=== PATIENT | male | born 1995 | race African-American/Black ===

== ENCOUNTER 2025-10-11 03:35 | Emergency (ER) | payer OTHER, SELFPAY ==
--- OUTSIDE RECORDS SUMMARY | 2025-10-11 03:48 | XMS_ITS | Continuity of Care Document ---
Author Name [facility] Organization [facility] Care Team Providers Care Employee Wellness/Fitness Coordinator Name Role Phone [facility] Unavailable Unavailable Problems Combined list of problems from Department of Defense and Veterans Affairs facilities. It does not include entries that were removed or entered in error. Problem Status Onset Date Problem Type Date of Resolution Comments Source Alpha thalassemia trait Active [address] [place] [address] Elevated blood pressure reading without diagnosis of hypertension Active [address] [place] [address] Pain of left shoulder joint Active [address] [place] [address] Lipomatosis, not elsewhere classified Inactive [address] [facility] contact dermatitis due to detergents Inactive [address] [facility] Preventive Medicine Established Patient Checkup Adult 18-39 Years Inactive [address] [facility] pain during urination (dysuria) Inactive [address] [facility] Encounter for administrative examinations, unspecified Active [address] [facility] Abnormal blood test Active Condition [address] [place] [address] Administrative statuses Active Condition [address] [place] [address] Alpha thalassemia trait Active Condition [address] [place] [address] Caregiver health check completed Active Condition [address] [place] [address] Elevated blood pressure reading without diagnosis of hypertension Active Condition [address] [place] [address] Morbid obesity Active Condition Unknown Organization Sleep problem Active Condition [address] [place] [address] Encounter for hearing conservation and treatment Active Condition [address] [place] [address] Vitamin D deficiency Active Condition [address] [place] [address] Medications Combined list of outpatient medications from Department of Defense and Veterans Affairs facilities.Medications provided include 1) outpatient medications from the last 15 months, and 2) patient-reported medications. Medication Details Route Status Indication(s) Patie nt Instructions Prescription Expires Prescription Number Last Dispense Date Ordering Provider Order Date Order Qty Source diphenhydrA MINE 0 total refill(s ), Maintena nce Ordered 2024 [facility] ibuprofen 600 mg oral tablet 1 tab(s), Oral, every 6 hr, # 40 tab(s), 0 total refill(s ), Acute, 01/24/23 12:00:00 AM CDT, Pharmacy : [facility] Oral (given by mouth) [facility] ed Abnormal findings in other body fluids and substances; Body mass index (BMI) 40.0-44.9, adult 01/24/20232022 40.0 0364C-A [facility] Sudafed 30 mg oral tablet 2 tab(s), Oral, every 6 hr, # 30 tab(s), 0 total refill(s ), Acute, 01/24/23 12:00:00 AM CDT, Pharmacy : [facility] Oral (given by mouth) [facility] ed Abnormal findings in other body fluids and substances; Body mass index (BMI) 40.0-44.9, adult 01/24/20232022 30.0 0364C-A [facility] [place] [facility] Tessalon Perles 100 mg oral capsule 1 cap(s), Oral, TID, PRN cough, X 10 days, # 30 cap(s), 0 total refill(s ), Acute, 01/03/23 8:56:00 AM CDT, Pharmacy : [facility] Oral (given by mouth) [facility] ed Abnormal findings in other body fluids and substances; Body mass index (BMI) 40.0-44.9, adult 01/03/20232022 30.0 0364C-A [facility] [place] [facility] Vitamin D3 25 mcg (1000 intl units) oral tablet 2 tab(s), Oral, Daily, # 180 tab(s), 3 total refill(s ), Harsha brewer, Pharmacy : [facility] Oral (given by mouth) Ordered 2024 180.0 0127C[facility]N [facility] Voltaren 1% topical gel See instruct ions, Apply 2 grams (upper extremit ies) or 4 grams (lower extremit ies) to affected area topicall y four times daily as needed for pain. Max total body dose of 32 grams per day, # 100 g, 0 total refill(s ), Harsha daniella, Pharmacy : [facility] Ordered 3 2022 100.0 0127C[facility]N [facility] Allergies, Adverse Reactions, Alerts Combined list of allergies from Department of Defense and Veterans Affairs facilities. It does not include entries that were removed or entered in error. Substance Category Reaction Severity Reaction type Status Date Reported Comments Source No Known Allergies Drug allergy (disorder) active 01/25/2023 [facility] Immunizations Combined list of available immunizations from the Department of Defense and Veterans Affairs facilities. Immunization Series Date Given Administered By Site Reaction Lot Number CVX Code Drug Paper Testing Supervisor Status Comments Source influenza, seasonal, injectable-pf 2023 LeeannSharee 140 complet ed Result Comment: Route: Unknown Manufactu rer: OTH (SKB) 0127C-N [facility] tuberculin purified protein derivative 2021 zzLef t Arm [id number] sanofi pasteur complet ed tuberculi n purified protein derivativ e 05/15/22 Given Ambulat ory Pharmac y tuberculin skin test; purified protein derivative solution, intradermal 1 2021 GURJIT MARROQUIN E [id number] 96 Sanofi Pasteur (PMC) complet ed tuberculi n skin test; purified protein derivativ e solution, intraderm al DoD typhoid Vi capsular polysaccharid e vac 2021 UNK 101 sanofi pasteur complet ed typhoid Vi capsular polysacch aride vac 05/07/22 Given Ambulat ory Pharmac y typhoid Vi capsular polysaccharid e vac 2021 UNK 101 sanofi pasteur complet ed typhoid Vi capsular polysacch aride vac 05/07/22 Given Ambulat ory Pharmac y typhoid Vi capsular polysaccharid e vaccine 2 2021 UNK 101 Sanofi Pasteur (PMC) complet ed typhoid Vi capsular polysacch aride vaccine DoD influenza, injectable, quadrivalent 2020 [id number] Seqirus complet ed influenza , injectabl e, quadrival ent 08/21/21 Given Ambulat ory Pharmac y influenza, injectable, quadrivalent 2020 [id number] 158 Seqirus complet ed influenza , injectabl e, quadrival ent 08/21/21 Given Ambulat ory Pharmac y influenza, injectable, quadrivalent, contains preservative 0 2020 [id number] 158 Seqirus (SEQ) comple t ed influenza , injectabl e, quadrival ent, contains preservat xenia DoD COVID Vaccine [facility] 2020 TRS 208 PFIZER complet ed COVID Vaccine Pfizer 06/21/21 Given Ambulat ory Pharmac y COVID Vaccine [facility] 2020 TRS 208 PFIZER complet ed COVID Vaccine Pfizer 06/21/21 Given Ambulat ory Pharmac y COVID-19, mRNA, LNP-S, PF, 30 mcg/0.3 mL dose 2020 GUMARO [employer] [facility] (PFR) Not Given COVID-19, mRNA, LNP-S, PF, 30 mcg/0.3 mL dose DoD SARS-COV-2 (COVID-19) vaccine, mRNA, spike protein, LNP, preservative free, 30 mcg/0.3mL dose 0 2020 Unknown, Provider TRS 208 [employer] (PFR) complet ed SARS-COV- 2 (COVID-19 ) vaccine, mRNA, spike protein, LNP, preservat xenia free, 30 mcg/0.3mL dose DoD COVID Vaccine [facility] 2020 [id number] PFIZER complet ed COVID Vaccine [facility] 03/15/21 Given Ambulat ory Pharmac y COVID Vaccine [facility] 2020 [id number] PFIZER complet ed COVID Vaccine [facility] 03/15/21 Given Ambulat ory Pharmac y SARS-COV-2 (COVID-19) vaccine, mRNA, spike protein, LNP, preservative free, 30 mcg/0.3mL dose 1 2020 [id number] [employer] (PFR) complet ed SARS-COV- 2 (COVID-19 ) vaccine, mRNA, spike protein, LNP, preservat xenia free, 30 mcg/0.3mL dose DoD influenza, injectable, quadrivalent- pf 2019 [id number] 699 150 Seqirus complet ed influenza , injectabl e, quadrival ent-pf 08/12/20 Given Ambulat ory Pharmac y influenza, injectable, quadrivalent- pf 2019 [id number] 699 150 Seqirus complet ed influenza , injectabl e, quadrival ent-pf 08/12/20 Given Ambulat ory Pharmac y Influenza, injectable, quadrivalent, preservative free 0 2019 [id number] 699 150 Seqirus (SEQ) complet ed Influenza , injectabl e, quadrival ent, preservat xenia free DoD [place] Encephalitis IM 2019 [id number] 0E 134 Valneva complet ed [place] Encephali tis IM 12/07/19 Given Ambulat ory Pharmac y [place] Encephalitis IM 2019 [id number] 0E 134 Valneva complet ed [place] Encephali tis IM 12/07/19 Given Ambulat ory Pharmac y [place] Encephalitis vaccine for intramuscular administratio n 3 2019 [id number] 0E 134 Valneva (STEVE) complet ed [place] Encephali tis vaccine for intramusc ular administr ation DoD influenza, seasonal, injectable 2018 [id number] 988 141 Seqirus complet ed influenza , seasonal, injectabl e 08/03/19 Given Ambulat ory Pharmac y influenza, seasonal, injectable 2018 [id number] 988 141 Seqirus complet ed influenza , seasonal, injectabl e 08/03/19 Given Ambulat ory Pharmac y Influenza, seasonal, injectable 0 2018 [id number] 988 141 Seqirus (SEQ) complet ed Influenza , seasonal, injectabl e DoD influenza, seasonal, injectable 2017 [id number] 1A 141 Seqirus complet ed influenza , seasonal, injectabl e 07/24/18 Given Ambulat ory Pharmac y influenza, seasonal, injectable 2017 [id number] 1A 141 Seqirus complet ed influenza , seasonal, injectabl e 07/24/18 Given Ambulat ory Pharmac y Influenza, seasonal, injectable 0 2017 [id number] 1A 141 Seqirus (SEQ) complet ed Influenza , seasonal, injectabl e DoD [place] Encephalitis IM 2017 UNK 134 Unknown complet ed [place] Encephali tis IM 02/26/18 Given Ambulat ory Pharmac y [place] Encephalitis vaccine for intramuscular administratio n 2 2017 UNK 134 Unknown (UNK) comple t ed [place] Encephali tis vaccine for intramusc ular administr ation DoD typhoid Vi capsular polysaccharid e vac 2017 UNK 101 Unknown complet ed typhoid Vi capsular polysacch aride vac 02/11/18 Given Ambulat ory Pharmac y typhoid Vi capsular polysaccharid e vaccine 1 2017 UNK 101 Unknown (UNK) comple t ed typhoid Vi capsular polysacch aride vaccine DoD Human Papillomaviru s 9-valent vaccine [facility] [id number] 165 Merck & Company Inc complet ed Human Papilloma virus 9-valent vaccine 06/24/17 Given Ambulat ory Pharmac y influenza, injectable, quadrivalent [facility] [id number] 158 Seqirus complet ed influenza , injectabl e, quadrival ent 06/24/17 Given Ambulat ory Pharmac y influenza, injectable, quadrivalent 2016 [id number] 158 Seqirus complet ed influenza , injectabl e, quadrival ent 06/24/17 Given Ambulat ory Pharmac y Human Papillomaviru s 9-valent vaccine 2016 [id number] 165 Merck & Company Inc complet ed Human Papilloma virus 9-valent vaccine 06/24/17 Given Ambulat ory Pharmac y influenza, injectable, quadrivalent, contains preservative 1 2016 Unknown, Provider [id number] 158 Seqirus (SEQ) complet ed influenza , injectabl e, quadrival ent, contains preservat xenia DoD Human Papillomaviru s 9-valent vaccine 2 2016 Unknown, Provider [id number] 165 Merck (MSD) complet ed Human Papilloma virus 9-valent vaccine DoD influenza, injectable, quadrivalent [facility] [id number] 158 Seqirus complet ed influenza , injectabl e, quadrival ent 09/18/16 Given Ambulat ory Pharmac y influenza, injectable, quadrivalent 2015 [id number] 158 Seqirus complet ed influenza , injectabl e, quadrival ent 09/18/16 Given Ambulat ory Pharmac y influenza, injectable, quadrivalent, contains preservative 1 2015 BALDOMERO ARVIZU Y [id number] 158 Seqirus (SEQ) complet ed influenza , injectabl e, quadrival ent, contains preservat xenia DoD [place] Encephalitis IM 2015 UNK 134 Unknown complet ed [place] Encephali tis IM 06/16/16 Given Ambulat ory Pharmac y [place] Encephalitis IM 2015 UNK 134 Unknown complet ed [place] Encephali tis IM 06/16/16 Given Ambulat ory Pharmac y [place] Encephalitis vaccine for intramuscular administratio n 1 2015 UNK 134 Unknown (UNK) comple t ed [place] Encephali tis vaccine for intramusc ular administr ation DoD [place] Encephalitis IM 2015 zzRig ht Arm [id number] 4E 134 Valneva complet ed [place] Encephali tis IM 02/15/16 Given Ambulat ory Pharmac y hepatitis B adult vaccine 2015 zzRig ht Arm [id number] 43 GlaxoSmithKli ne complet ed hepatitis B adult vaccine 02/15/16 Given Ambulat ory Pharmac y Human Papillomaviru s 9-valent vaccine 2015 zzL t Arm [id number] 165 [employer] complet ed Human Papilloma virus 9-valent vaccine 02/15/16 Given Ambulat ory Pharmac y hepatitis B adult vaccine 2015 [id number] 43 GlaxoSmithKli ne complet ed hepatitis B adult vaccine 02/15/16 Given Ambulat ory Pharmac y [place] Encephalitis IM 2015 [id number] 4E 134 Valneva complet ed [place] Encephali tis IM 02/15/16 Given Ambulat ory Pharmac y hepatitis B vaccine, adult dosage 3 2015 KIRA PALUMBO [id number] 43 Groupspeak (B) complet ed hepatitis B vaccine, adult dosage DoD [place] Encephalitis vaccine for intramuscular administratio n 1 2015 KIRA PALUMBO [id number] 4E 134 [facility] [employer] (INT) complet ed [place] Encephali tis vaccine for intramusc ular administr ation DoD Human Papillomaviru s 9-valent vaccine 1 2015 KIRA PALUMBO [id number] 165 Merck (MSD) complet ed Human Papilloma virus 9-valent vaccine DoD influenza, live, intranasal,qu adrivalent 2014 [id number] 149 Medimmune Inc comple t ed influenza , live, intranasa l,quadriv alent 09/21/15 Given Ambulat ory Pharmac y influenza, live, intranasal,qu adrivalent 2014 [id number] 149 Medimmune Inc comple t ed influenza , live, intranasa l,quadriv alent 09/21/15 Given Ambulat ory Pharmac y influenza, live, intranasal, quadrivalent 1 2014 LINWOODKIRA Matthew [id number] 149 [employer]. (MED) complet ed influenza , live, intranasa l, quadrival ent DoD measles and rubella virus vaccine 0 2014 04 () Not Given measles and rubella virus vaccine DoD hepatitis A vaccine, adult dosage 0 2014 52 () Not Given hepatitis A vaccine, adult dosage DoD poliovirus vaccine, inactivated 2014 zzRig ht Arm N6814-1 10 sanofi pasteur complet ed polioviru s vaccine, inactivat ed 06/29/15 Given Ambulat ory Pharmac y hepatitis B adult vaccine 2014 zzLef t Arm [id number] 43 GlaxoSmithKli ne complet ed hepatitis B adult vaccine 06/29/15 Given Ambulat ory Pharmac y poliovirus vaccine, inactivated 2014 [id number] 10 sanofi pasteur complet ed polioviru s vaccine, inactivat ed 06/29/15 Given Ambulat ory Pharmac y poliovirus vaccine, inactivated 1 2014 CAROLYN MARTINEZ [id number] 10 Sanofi Pasteur (PMC) complet ed polioviru s vaccine, inactivat ed DoD hepatitis B vaccine, adult dosage 2 2014 CAROLYN MARTINEZ [id number] 43 SmithKline (SKB) complet ed hepatitis B vaccine, adult dosage DoD tetanus, diphtheria, acellular pertu is 2014 zzRig ht Arm [id number] 115 GlaxoSmithKli ne complet ed tetanus, diphtheri a, acellular pertussis 05/26/15 Given Ambulat ory Pharmac y meningococcal oligosacchari de (MCV4O) 2014 zzLef t Arm [id number] 136 sanofi pasteur complet ed meningoco ccal oligosacc haride (MCV4O) 05/26/15 Given Ambulat ory Pharmac y hepatitis B adult vaccine 2014 zzLef t Arm [id number] 43 GlaxoSmithKli ne complet ed hepatitis B adult vaccine 05/26/15 Given Ambulat ory Pharmac y adenovirus vaccine, live 2014 [id number] 4 143 Unknown complet ed adenoviru s vaccine, live 05/26/15 Given Ambulat ory Pharmac y adenovirus vaccine, live 2014 [id number] 4 143 Unknown complet ed adenoviru s vaccine, live 05/26/15 Given Ambulat ory Pharmac y hepatitis B adult vaccine 2014 [id number] 43 GlaxoSmithKli ne complet ed hepatitis B adult vaccine 05/26/15 Given Ambulat ory Pharmac y meningococcal oligosacchari de (MCV4O) 2014 [id number] 136 sanofi pasteur complet ed meningoco ccal oligosacc haride (MCV4O) 05/26/15 Given Ambulat ory Pharmac y tetanus, diphtheria, acellular pertu is 2014 [id number] 115 GlaxoSmithKli ne complet ed tetanus, diphtheri a, acellular pertussis 05/26/15 Given Ambulat ory Pharmac y hepatitis B vaccine, adult dosage 1 2014 Unknown, Provider [id number] 43 SmithKline (YAHAIRA) complet ed hepatitis B vaccine, adult dosage DoD tetanus toxoid, reduced diphtheria toxoid, and acellular pertu is vaccine, adsorbed 1 2014 Unknown, Provider [id number] 115 SmithKline (SKJayden) complet ed tetanus toxoid, reduced diphtheri a toxoid, and acellular pertussis vaccine, adsorbed DoD meningococcal oligosacchari de (groups A, C, Y and W-135) diphtheria toxoid conjugate vaccine (MCV4O) 1 2014 Unknown, Provider [id number] 136 Sanofi Pasteur (PMC) complet ed meningoco ccal oligosacc haride (groups A, C, Y and W-135) diphtheri a toxoid conjugate vaccine (MCV4O) DoD Adenovirus, type 4 and type 7, live, oral 1 2014 Unknown, Provider [id number] 4 143 Other (OTH) complet ed Adenoviru s, type 4 and type 7, live, oral DoD Results Combined list of recent chemistry, hematology and other laboratory results from Department of Defense and Veterans Affairs, ranging from 15 months to all on record, depending upon the facility. Order Name Results Value Reference Range Date Interpretation Specimen Comments Source Genetics Alpha-Thal Genes Analyzed LC COMMENT 07/06 Result Comment: HBA1/HBA2 0127A-NH [facility] Alpha-Thal Clinical Info LC COMMENT 07/06 Result Comment: Alpha-thala ssemia, a disorder with variable severity, is usually inherited in an autosomal recessive manner. Individuals with alpha-thala ssemia have a deficiency in the production of hemoglobin, a protein that carries oxygen in the blood. Silent carriers of alpha-thala ssemia are not expected to have related health problems. Individuals with alpha-thala ssemia trait may have symptoms of mild anemia. The two clinically significant forms of alpha thalassemia are HbH disease and Hb Bin hydrops fetalis syndrome. Signs and symptoms of the less severe HbH disease usually appear in grain inspector and may include mild to moderate hemolytic anemia, hepatosplen omegaly, mild jaundice, and bone changes. Signs and symptoms of the more severe Hb Bin hydrops fetalis syndrome appear before and may include generalized edema, severe hypochromic anemia, hepatosplen omegaly, heart problems, and genitourina ry abnormaliti es. Mothers of babies affected with Hb Bin hydrops fetalis syndrome may experience serious complicatio ns, including preeclampsi a, premature delivery, or abnormal bleeding during . Co-inherita nce of alpha-thala ssemia and other hemoglobino pathies, such as beta-thalas semia or sickle cell disease, may modify symptoms. In utero stem cell transplanta tion or blood transfusion s may be available for affected fetuses. Without treatment, most babies with Hb Bin hydrops fetalis syndrome are stillborn or soon after . Individuals with HbH disease may survive to adulthood. Treatment is otherwise supportive and may include red blood cell transfusion s. (PMID:[id number]). 0127A-NH [facility] Alpha-Thal Comments LC COMMENT 07/06 Result Comment: This interpretat ion is based on the clinical information provided and the current understandi ng of the molecular genetics of the disorder(s) tested. 0127A-NH [facility] Alpha-Thal Methods/Li mits LC COMMENT 07/06 Result Comment: Alpha thalassemia : Analysis of the alpha-globi n (HBA) gene cluster is performed by multiplex ligation-de pendent probe amplificati on (MLPA). Agarose gel electrophor esis and [place] sequencing are used to distinguish or confirm variants that cannot be resolved by MLPA. There are two alpha-globi n genes in the HBA gene cluster, HBA1 and HBA2. Typically, an individual with a normal genotype has these two genes on each chromosome (alpha alpha/alpha alpha). A deletion that removes two of the genes on one of the chromosomes is described as - -/alpha alpha. Alpha-globi n variants included in the analysis are the [facility] non-deletio n variant and the following deletions: -alpha3.7, -alpha4.2, --alpha20.5 , --SEA, --CLAUDETTE, --QUENTIN, --MED, and the HS-40 regulatory region. This analysis does not detect other variants in the alpha-globi n genes or variants in the beta-globin gene and may not detect the co-occurren ce of a deletion and a duplication . Analytical sensitivity is estimated to be >98% for the targeted variants. Limitations : Technologie s used do not detect germline mosaicism and do not rule out the presence of large chromosomal aberrations including rearrangeme nts and gene fusions, or variants in regions or genes not included in this test, or possible inter/intra genic interaction s between variants, or repeat expansions. Variant classificat ion and/or interpretat ion may change management lead time if more information becomes available. False positive or false negative results may occur for reasons that include: rare genetic variants, sex chromosome abnormaliti es, pseudogene interferenc e, blood transfusion s, bone marrow transplanta tion, somatic or tissue-spec ific mosaicism, mislabeled samples, or erroneous representat ion of family relationshi ps. This test was developed and its performance characteris tics determined by [facility]. It has not been cleared or approved by the Food and Drug Administrat ion. This test was developed and its performance characteris tics determined by [facility]. It has not been cleared or approved by the Food and Drug Administrat ion. 0127A-[facility] Alpha-Thal References LC COMMENT 07/06 Result Comment: Misael Juarez. Alpha-Thala ssemia. 2004Aug 20 [Updated 2019Jul 20]. In: Samson MP, Franky J, Ronen SUH, et al., editors. Silvestre (R) [Internet]. 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 this result have (-alpha/-al pha) alpha-+-heidy lassemia trait. May have symptoms of mild anemia. Genetic counseling is recommended . [facility] Alpha-Thal Recommenda tions LC COMMENT 07/06 Result Comment: If the above result is positive, genetic counseling is recommended to discuss the potential clinical and/or reproductiv e implication s, as well as recommendat ions for testing family members and, when applicable, this individual' s partner. Genetic counseling services are available. To access [facility] please visit [email or web address] nseling or call [phone] [email or web address] ). [facility] Alpha-Thal Specimen Type LC COMMENT 07/06 Result Comment: Whole Blood [facility] Alpha-Thal Indication LC COMMENT 07/06 Result Comment: Not Provided [facility] Alpha-Thal Result LC COMMENT 07/06 A Result Comment: POSITIVE [address] [place] [address] [facility] Alpha-Thal Director Rev/Releas e LC COMMENT 07/06 Result Comment: Component Type Performed At [facility] Leonarda Tomlinson, component, [facility] of , PhD processing [facility] [place], [address] Technical Laboratory Leonarda Tomlinson, component, [facility] , PhD analysis [facility] [facility] [place], [address] [id number], Leonarda Tomlinson, component Laboratory , PhD [facility], [address] [place], [address] Electronica lly released by Fela Richard, PhD, [address] [facility] Alpha-Thal IMAGE LC . 07/06 Result Comment: Performed At: 01 [facility] [address] [place], [place] [id number] [facility], located [facility] Ph:[phone] [address] [place] [address] [facility] TIBC 300 ug/dL 261 - 462 07/06 N 0127A-[facility] Chemistry Iron 88 ug/dL 49 - 181 07/06 N 0127A-[facility] Chemistry Ferritin Lvl 271 ng/mL 30 - 464 07/06 N 0127A-[facility] Chemistry Iron % Sat 29 g/dL 15 - 50 07/06 N 0127A-[facility] Hematolog y CBC w/ Diff Ordered? Yes (07/06/25 2:27 PM) 07/06 N 0125A-[facility] H[facility]olog [facility] Hematocrit 41 % 42 - 51 07/06 L 0125A-[facility] Hematolog [facility] Hemoglobin 13.0 g/dL 13.0 - 18.0 07/06 N 0125A-[facility] Hematolog [facility] RBC 5.7 10^6/uL 4.5 - 5.8106 07/06 N 0125A-[facility] Hematolog y Patient Hx/Ethnici ty: black 07/06 0125A-[facility] Hematolog [facility] MCV 72 fL 80 - 98 07/06 L 0125A-AM [facility] Hematolog y RDW 13.6 % 11.6 - 15.0 07/06 N 0125A-[facility] Hematolog [facility] Hgb Interp No abnormal hemoglob in variants identifi ed by Capillar y Zone Electrop horesis. Microcyt osis and normal iron studies suggests alpha-th alassemi a trait; if clinical ly indicate d, confirma tory alpha globin deletion /duplica tion testing could be consider ed. Reviewed by: Daniel Duncan MD, Staff Hematopa thologis t 07/06 0125A-[facility] Hgb A2 % 2.1 % 2.2 - 3.2 07/06 L 0125A-[facility] Hematolog [facility] Hgb A % 97.9 % 94.5 - 98.2 07/06 N 0125A-[facility] Hematolog y Iron Studies Ordered? Yes (07/06/25 2:27 PM) 07/06 N 0125A-AM [facility] Chemistry Folate Lvl 7 ng/mL 4 - 20 07/06 N Interpretiv e Data: A serum folate concentrati on of less than 3.1 ng/mL is considered to represent clinical deficiency. Ingestion of Biotin or Biotin-cont aining supplements that result in serum concentrati ons of 5 ng/mL or higher may cause a false increase in Folate results. [address] [place] [address] Chemistry Vitamin B12 771 pg/mL 239 - 931 07/06 N Interpretiv e Data: Ingestion of Biotin or Biotin-cont aining supplements that result in serum concentrati ons of 20 ng/mL or higher may cause a false increase in Vitamin B12 results. 012-[facility] Chemistry eGFR CKD EPI 103 mL/min/1 .73_m2 05/23 Interpretiv e Data: Estimated Glomerular Filtration Rate (eGFR) calculated using the 2020 Chronic Kidney Disease-Epi demiology (CKD-EPI) Collaborati on creatinine equation; units of measure are mL/min/1.73 m2. Results are only valid for adults ( 1 8 years) whose serum creatinine is in steady state. eGFR calculation s are not valid for patients with acute kidney injury and for patients on dialysis. Creatinine- based estimates of kidney function may also be inaccurate in patients with reduced creatinine generation due to decreased muscle mass (e.g., malnutritio n, severe hypoalbumin emia, sarcopenia, chronic neuromuscul ar disease, amputations , severe heart failure or liver disease) and in patients with increased creatinine generation due to increased muscle mass (e.g., muscle builders, anabolic steroids) or increased dietary intake. As drug clearance is proportiona l to total GFR and not GFR indexed to body surface area (BSA), in individuals with a BSA substantial ly different than 1.73 m2, drug dosing should be based the reported eGFRvalue de-indexed from BSA by multiplying by the individual s BSA and dividing by 1.73. CKD is diagnosed based on abnormaliti es of kidney structure or function, present for >3 months, with implication s for health and disease. CKD is classified and staged based on cause, eGFR and albuminuria (quantified as urine albumin to creatinine ratio). An eGFR >60 mL/min/1.73 m2 in the absence of increased urine albumin excretion or structural abnormaliti es does not represent CKD.eGFR (mL/min/1.7 3 m2) CKD stage Interpretat ion 9 0 G1 Normal 60-89 G2 Mild decrease 45-59 G3A Mild to moderate decrease 30-44 G3B Moderate to severe decrease 15-29 G4 Severe decrease <15 G5 Kidney failure 0127A-[facility] Chemistry Creatinine Level 1.00 mg/dL 0.66 - 1.25 05/23 N 0127A-[facility] Chemistry AGAP 12 mmol/L 7 - 16 05/23 N 0127A-[facility] Chemistry Calcium 9.9 mg/dL 8.4 - 10.2 05/23 N 0127A-[facility] Chemistry BUN 14 mg/dL 9 - 20 05/23 N 012-[facility] Chemistry Glucose Lvl 94 mg/dL 74 - 100 05/23 N 0127A-[facility] Chemistry Potassium Lvl 4.8 mmol/L 3.4 - 5.1 05/23 N 0127A-[facility] Chemistry CO2 25 mmol/L 22 - 30 05/23 N 012-[facility] Chemistry Chloride 104 mmol/L 98 - 107 05/23 N 0127A-[facility] Chemistry Sodium 141 mmol/L 137 - 145 05/23 N 0127A-[facility] Chemistry Osmo Calc 272 mOsm/kg 277 - 308 05/23 L 0127A-[facility] Chemistry BUN/Creat Ratio 14.00 ratio 7.00 - 25.00 05/23 N 0127A-[facility] Hematolog y MCH 23.0 pg 26.7 - 33.7 05/23 L 0127A-[facility] Hematolog y MCV 72.3 fL 80.0 - 98.0 05/23 L 0127A-[facility] Hematolog y Hematocrit 44.9 % 41.0 - 51.0 05/23 N 0127A-[facility] Hematolog y RBC 6.21 x10^12/L 4.45 - 5.755181 05/23 H 0127A-[facility] Hematolog y Hemoglobin 14.3 g/dL 14.0 - 17.0 05/23 N 0127A-[facility] Hematolog y WBC 5.38 x10^9/L 3.60 - 11.02053 05/23 N 0127A-[facility] Hematolog y Platelets 318 x10^9/L 140 - [id number] 05/23 N 0127A-[facility] Hematolog y RDW 13.9 % 11.0 - 14.0 05/23 N 0127A-[facility] Hematolog y MPV 10.2 fL 7.0 - 10.0 05/23 H 0127A-[facility] Hematolog y MCHC 31.8 g/dL 32.0 - 36.0 05/23 L 012-[facility] Chemistry Hemoglobin A1c 4.9 % 4.0 - 5.7 05/23 N Interpretiv e Data: The [place] [employer] has recommended the following guidelines: 5.7 - 6.4%: Prediabetes . Patients with HgbA1c concentrati ons between 5.7% and 6.4% should be referred to support programs and may be considered for metformin therapy. 6.5% HbA1c: Diagnostics for Diabetes mellitus 7.0% HbA1c: Target value to reduce microvascul ar complicatio ns for many non-pregnan t patients under glycemic control programs. 8.0% HbA1c: Target value that may be appropriate for patients with history of severe hypoglycemi a, limited life expectancy, advanced micro- or macrovascul ar complicatio ns, other co-morbid conditions or in those where interventio ns have proven difficult. For gestational diabetes (GDM), HgbA1c may be used as an initial screen, but should be followed up using an alternative method for persistence . 0127A-[facility] Chemistry eAvg Glucose 94 mg/dL 74 - 100 05/23 N 012-[facility] Chemistry A/G Ratio 1.40 ratio 1.00 - 2.50 05/23 N 0127A-[facility] Chemistry AST 29 U/L 17 - 59 05/23 N 012-[facility] Chemistry ALT 31 U/L 05/23 N 0127A-[facility] Chemistry Globulin 3.5 g/dL 2.0 - 3.5 05/23 N 0127A-[facility] Chemistry Alk Phos 49 U/L 38 - 126 05/[address] [place] [address] Chemistry Bilirubin Direct 0.0 mg/dL 0.0 - 0.3 05/23 N Interpretiv e Data: Specimens from patients receiving intensive light therapy may exhibit an increase in direct bilirubin. [address] [place] [address] Chemistry Protein Total 8.40 g/dL 6.30 - 8.20 05/[address] [place] [address] Chemistry Bilirubin Total 0.50 mg/dL 0.20 - 1.30 05/[address] [place] [address] Chemistry Albumin 4.9 g/dL 3.5 - 5.0 05/[address] [place] [address] Chemistry Chol/HDL 4.1 ratio 1.0 - 6.0 05/[address] [place] [address] Chemistry VLDL 26 mg/dL 2 - 30 05/[address] [place] [address] Chemistry LDL/HDL 2.4 ratio 3.5 - 5.0 05/[address] [place] [address] Chemistry Triglyceri raghu 130 mg/dL 05/[address] [place] [address] Chemistry Cholestero l Total 197 mg/dL 0 - 200 05/23 N Interpretiv e Data: The ATP III guidelines recommended by NCEP for samples collected from fasting patients are the following: Desirable < 200 mg/dL Borderline High 200 2 39 mg/dL High 240 mg/dL [address] [place] [address] Chemistry LDL 115 mg/dL 05/23 N Interpretiv e Data: The ATP III guidelines recommended by NCEP for samples collected from fasting patients are the following: Optimal < 100 mg/dL Near to above Optimal 100 1 29 mg/dL Borderline High 130 1 59 mg/dL High 160 1 89 mg/dL Very High 190 mg/dL [address] [place] [address] Chemistry HDL Cholestero l 48 mg/dL 40 - 60 05/[address] [place] [address] Chemistry TSH 2.340 mIU/L 0.465 - 4.680 05/23 N Interpretiv e Data: Ingestion of Biotin or Biotin-cont aining supplements that result in serum concentrati ons of 2 ng/mL or higher may cause a false decrease in TSH results. [address] [place] [address] Chemistry Vitamin D 25 OH 24 ng/mL 30 - 100 05/23 L Interpretiv e Data: The Treatment, and Prevention of Vitamin D Deficiency: An Endocrine Society Clinical Practice Guideline recommends the following 25-OH Vitamin D levels: Deficient <20 ng/mL Insufficien t 20 < 30 ng/mL Sufficient 30 1 00 ng/mL Potential Toxicity >100 ng/mL [address] [place] [address] Chemistry Ur Microalbum in 1.7 mg/dL 05/23 N Interpretiv e Data: The [place] [employer] has recommended the following guidelines: Normal < 30 ug/mg Microalbumi bigg 30 3 00 ug/mg Clinical albuminuria > 300 ug/mg [address] [place] [address] Chemistry Ur Microalb/U r Creat Ratio TNP 05/23 Result Comment: TNP due to no accurate creatinine result. [id number] [address] [place] [address] Chemistry Ur Creat TNP 30.0 - 275.0 05/23 Result Comment: TNP due to specimen interferenc e. Requesting specimen recollectio n. [id number] [address] [place] [address] Infectiou s Disease Source of Test.LC Gen Force Test (04/26/25 11:45 AM) 04/[address] [place] [address] Infectiou s Disease HIV-1/2 AG/AB 4G CDD LC NEGATIVE NEGATIVE 04/26 Result Comment: Performed At: [facility] [id number] [place] [address] [address] [place] [address] LINDSEY CASTANEDAN PHD Ph:[phone] [address] [place] [address] Molecular Infectiou s Disease Reason for Test? Diagnosi s (12/24/22 8:42 AM) 12/24 N 0364A-AF -C-17th [facility] w Molecular Infectiou s Disease SARS-CoV-2 ANTIGEN Negative 29 (12/24/22 8:42 AM) 12/24 N Interpretiv e Data: The Carole SARS Antigen BATOOL is intended for the qualitative detection of the nucleocapsi d protein antigen from SARS-CoV-2 in nasopharyng eal (AIRCRA[employer]URN[employer]ER) and nasal (NS) swab specimens directly from individuals who are suspected of COVID-19 by their healthcare provider within the first five (5) days of the onset of symptoms. Clinicians should use their judgement to determine if a patient has signs or symptoms compatible with COVID-19 and whether the patient should be tested. Use results in conjunction with clinical signs and symptoms, epidemiolog ical information , and travel history to diagnose SARS-CoV-2 infection and differentia te SARS-CoV-2 from other respiratory virus infections. NEGATIVE: Negative results, from patients with symptom onset beyond five days, should be treated as presumptive and confirmatio n with a molecular assay, if necessary, for patient management, may be performed. Negative results do not rule out COVID-19 and should not be used as the sole basis for treatment or patient management decisions, including infection control decisions. Negative results should be considered in the context of a patient's recent exposures, history and the presence of clinical signs and symptoms consistent with COVID-19. POSITIVE: Positive results indicate the presence of viral antigens, but clinical correlation with patient history and other diagnostic information is necessary to determine infection status. Positive results do not rule out bacterial infection or co-infectio n with other viruses. The agent detected may not be the definite cause of disease. Laboratorie s within the [facility] and its territories are required to report all positive results to the appropriate public health authorities . INVALID: Recommende d that a new specimen be collected and submitted if clinically indicated. Test parameters have not been validated for screening asymptomati c patients. Please see the following documents: Fact Sheet for Healthcare Providers: https://www .fda.gov/me vee/299499/ download Fact Sheet for Patients: https://www .fda.gov/me vee/151110/ download NOTICE: This test has not been FDA cleared or approved; the test has been authorized by FDA under an Emergency Use Authorizati on (EUA) for use by laboratorie s certified under the CLIA that meet the requirement s to perform moderate, high or waived complexity tests. 0364A-AF -C [facility] [place] [facility] Molecular Infectiou s Disease Flu A Rapid Ag Negative (12/24/22 8:42 AM) 12/24 N 0364A-AF -C [facility] [place] [facility] Molecular Infectiou s Disease Flu B Rapid Ag Negative 8 (12/24/22 8:42 AM) 12/24 N Interpretiv e Data: The Carole Influenza A+B BATOOL employs immunofluor escence to detect influenza A and influenza B viral nucleoprote in antigens in direct nasal swab, nasopharyng eal swab, and nasopharyng eal aspirate/wa sh specimens from symptomatic patients. This qualitative test is intended for use as an aid in the rapid differentia l diagnosis of acute influenza A and influenza B viral infections. NEGATIVE: A negative test is presumptive and it is recommended these results be confirmed by viral culture or an FDA-cleared influenza A and B molecular assay. Negative results do not preclude influenza virus infections and should not be used as the sole basis for treatment or other patient management decisions. POSITIVE: Positive results indicate the presence of Influenza A, or Influenza B, or for both Influenza A and Influenza B. A positive Influenza A result does not identify any specific influenza A virus subtype. A positive result does not rule out co-infectio ns with other pathogens. INVALID: Recommende d that a new specimen be collected and submitted if clinically indicated. 0364A-AF -C[facility] [place] [facility] Hematolog y MCHC 31.6 g/dL 31.0 - 36.5 08/07 N 0364A-AF -C-17[facility] [place] [facility] Hematolog y MCH 23.9 pg 25.0 - 35.0 08/07 L 0364A-AF -C-17[facility] [place] [facility] Hematolog y Hemoglobin 13.1 g/dL 13.7 - 17.5 08/07 L 0364A-AF -C-17[facility] [place] [facility] Hematolog y MCV 75.5 fL 80.0 - 100.0 08/07 L 0364A-AF -C-17[facility] [place] [facility] Hematolog y RBC 5.49 10^6/uL 4.40 - 6.09286 08/07 N 0364A-AF -C-17[facility] [place] [facility] Hematolog y Platelets 230.0 10^3/uL 150.0 - 450.0103 08/07 N 0364A-AF -C-17[facility] [place] [facility] Hematolog y MPV 8.4 fL 8.3 - 12.4 08/07 N 0364A-AF -C-17[facility] [place] [facility] Hematolog y RDW 12.4 % 10.9 - 16.0 08/07 N 0364A-AF -C-17[facility] [place] [facility] Hematolog y Hematocrit 41.5 % 39.0 - 52.0 08/07 N 0364A-AF -C-17[facility] [place] [facility] Hematolog y WBC 6.0 10^3/uL 4.2 - 10.2103 08/07 N 0364A-AF -C-[facility] [place] [facility] Urinalysi s UA Glucose Negative mg/dL 08/07 N 0364A-AF -C-17[facility] [place] [facility] Urinalysi s UA Ketones 15 mg/dL 08/07 A 0364A-AF -C-17[facility] [place] [facility] Urinalysi s UA Leuk Esterase Negative ( 2 1:59 PM) 08/07 N 0364A-AF -C-[facility] [place] [facility] Urinalysi s UA Nitrite Negative ( 2 1:59 PM) 08/07 N 0364A-AF -C-17[facility] [place] [facility] Urinalysi s UA pH 6.0 ( 2 1:59 PM) 08/07 N 0364A-AF -C-17[facility] [place] [facility] Urinalysi s UA Protein Negative mg/dL 08/07 N 0364A-AF -C-17[facility] [place] [facility] Urinalysi s UA Spec Atco >=1.030 *ABN* ( 2 1:59 PM) 08/07 A 0364A-AF -C-17[facility] [place] [facility] Urinalysi s UA Urobilinog en 0.2 E.U./dL 08/07 N 0364A-AF -C-17[facility] [place] [facility] Urinalysi s UA Blood Negative ( 2 1:59 PM) 08/07 N 0364A-AF -C-17[facility] [place] [facility] Urinalysi s UA Color Yellow ( 2 1:59 PM) 08/07 N 0364A-AF -C-17[facility] [place] [facility] Urinalysi s UA Clarity Clear ( 2 1:59 PM) 08/07 N 0364A-AF -C-17[facility] [place] [facility] Urinalysi s UA Bili Negative 5 ( 2 1:59 PM) 08/07 N Interpretiv e Data: Confirmatio n testing on positive urine bilirubin results are not performed. Bilirubin confirmatio n with blood test is recommended if clinically indicated. 0364A-AF -C[facility] [place] [facility] Urinalysi s UA Micro Ind? Not Indicate d *NA* ( 2 1:59 PM) 08/07 0364A-AF -C[facility] [place] [facility] Hematolog y Edmunds Absolute 0.23 10^3/uL 0.30 - 1.34710 08/07 L 0364A-AF -C[facility] [place] [facility] Hematolog y Eos Absolute 0.09 10^3/uL 0.00 - 0.01083 08/07 N 0364A-AF -C-17[facility] [place] [facility] Hematolog y Baso Absolute 0.04 10^3/uL 0.00 - 0.57993 08/07 N 0364A-AF -C-17[facility] [place] [facility] Hematolog y Basophil % Auto 0.6 % 0.0 - 1.8 08/07 N 0364A-AF -C-17[facility] [place] [facility] Hematolog y Lymph Absolute 2.74 10^3/uL 1.20 - 4.78179 08/07 N 0364A-AF -C- [facility] [place] [facility] Hematolog y Neutro Absolute 2.87 10^3/uL 1.72 - 7.20584 08/07 N 0364A-AF -C- [facility] [place] [facility] Hematolog y Lymphocyte % Auto 46.0 % 15.0 - 48.0 08/07 N 0364A-AF -C-17 [facility] [place] [facility] Hematolog y Eosinophil % Auto 1.5 % 0.0 - 6.0 08/07 N 0364A-AF -C-17 [facility] [place] [facility] Hematolog y Neutrophil % Auto 48.1 % 45.0 - 75.0 08/07 N 0364A-AF -C- [facility] [place] [facility] Hematolog y Monocyte % Auto 3.8 % 3.0 - 10.0 08/07 N 0364A-AF -C- [facility] [place] [facility] Chemistry eGFR CKD EPI 86 mL/min/1 .73_m2 08/07 Interpretiv e Data: Estimated Glomerular Filtration Rate (eGFR) calculated using the 2020 Chronic Kidney Disease-Epi demiology (CKD-EPI) Collaborati on creatinine equation; units of measure are mL/min/1.73 m2. Results are only valid for adults ( 1 8 years) whose serum creatinine is in steady state. eGFR calculation s are not valid for patients with acute kidney injury and for patients on dialysis. Creatinine- based estimates of kidney function may also be inaccurate in patients with reduced creatinine generation due to decreased muscle mass (e.g., malnutritio n, severe hypoalbumin emia, sarcopenia, chronic neuromuscul ar disease, amputations , severe heart failure or liver disease) and in patients with increased creatinine generation due to increased muscle mass (e.g., muscle builders, anabolic steroids) or increased dietary intake. As drug clearance is proportiona l to total GFR and not GFR indexed to body surface area (BSA), in individuals with a BSA substantial ly different than 1.73 m2, drug dosing should be based the reported eGFRvalue de-indexed from BSA by multiplying by the individual s BSA and dividing by 1.73. CKD is diagnosed based on abnormaliti es of kidney structure or function, present for >3 months, with implication s for health and disease. CKD is classified and staged based on cause, eGFR and albuminuria (quantified as urine albumin to creatinine ratio). An eGFR >60 mL/min/1.73 m2 in the absence of increased urine albumin excretion or structural abnormaliti es does not represent CKD.eGFR (mL/min/1.7 3 m2) CKD stage Interpretat ion 9 0 G1 Normal 60-89 G2 Mild decrease 45-59 G3A Mild to moderate decrease 30-44 G3B Moderate to severe decrease 15-29 G4 Severe decrease <15 G5 Kidney failure 0364A-AF -C-17[facility] [place] [facility] Chemistry A/G Ratio 1.3 ratio 1.0 - 2.0 08/07 N 0364A-AF -C-17[facility] [place] [facility] Chemistry BUN/Creat Ratio 14.0 ratio 6.0 - 20.0 08/07 N 0364A-AF -C-17[facility] [place] [facility] Chemistry AGAP 9 mmol/L 5 - 16 08/07 N 0364A-AF -C-17[facility] [place] [facility] Chemistry BUN 16.5 mg/dL 6.8 - 20.5 08/07 N 0364A-AF -C-[facility] [place] [facility] Chemistry Alk Phos 44 U/L 38 - 126 08/07 N 0364A-AF -C-17[facility] [place] [facility] Chemistry Albumin 4.3 g/dL 3.4 - 5.1 08/07 N 0364A-AF -C-17[facility] [place] [facility] Chemistry Sodium 141 mmol/L 137 - 145 08/07 N 0364A-AF -C-17[facility] [place] [facility] Chemistry CO2 25 mmol/L 22 - 31 08/07 N 0364A-AF -C-17[facility] [place] [facility] Chemistry Glucose Lvl 101 mg/dL 74 - 106 08/07 N 0364A-AF -C-17[facility] [place] [facility] Chemistry Protein Total 7.6 g/dL 6.3 - 8.2 08/07 N 0364A-AF -C-17 [facility] [place] [facility] Chemistry Calcium 9.4 mg/dL 8.3 - 10.5 08/07 N 0364A-AF -C-17 [facility] [place] [facility] Chemistry Bilirubin Total 0.4 mg/dL 0.0 - 1.3 08/07 N 0364A-AF -C-17 [facility] [place] [facility] Chemistry Chloride 107 mmol/L 98 - 107 08/07 N 0364A-AF -C-17 [facility] [place] [facility] Chemistry Potassium Lvl 4.0 mmol/L 3.5 - 5.1 08/07 N 0364A-AF -C-17 [facility] [place] [facility] Chemistry ALT 24 U/L 0 - 40 08/07 N 0364A-AF -C- [facility] [place] [facility] Chemistry Creatinine Level 1.18 mg/dL 0.60 - 1.25 08/07 N 0364A-AF -C-17 [facility] [place] [facility] Chemistry AST 32 U/L 0 - 35 08/07 N 0364A-AF -C-17 [facility] [place] [facility] Vital Signs Combined list of inpatient and outpatient Vital Signs from [employer] and [facility], ranging from 12 months to all on record, depending upon the facility. Vital Sign Value Date Comments Source Peripheral Pulse Rate 94 bpm 07/06/2025 20:53:[address] [place] [address] Mean Arterial Pressure, Cuff (Calc) 99 mm[Hg] 07/06/2025 20:53:[address] [place] [address] Systolic Blood Pressure 128 mm[Hg] 07/06/2025 20:53:[address] [place] [address] Diastolic Blood Pressure 85 mm[Hg] 07/06/2025 20:53:[address] [place] [address] Blood Pressure Manual Automatic 07/06/2025 20:53:[address] [place] [address] BP Site Left arm 07/06/2025 20:53:[address] [place] [address] Temperature Oral 37 Kenzie 07/06/2025 20:53:[address] [place] [address] Respiratory Rate 16 br/min 07/06/2025 20:53:[address] [place] [address] Temperature Oral 36.8 Kenzie 04/26/2025 18:44:[address] [place] [address] Systolic Blood Pressure 140 mm[Hg] 04/26/2025 18:44:[address] [place] [address] Diastolic Blood Pressure 100 mm[Hg] 04/26/2025 18:44:[address] [place] [address] BP Site Right arm 04/26/2025 18:44:[address] [place] [address] Blood Pressure Manual Manual 04/26/2025 18:44:[address] [place] [address] Peripheral Pulse Rate 88 bpm 04/26/2025 18:44:[address] [place] [address] Mean Arterial Pressure, Cuff (Calc) 113 mm[Hg] 04/26/2025 18:44:[address] [place] [address] Respiratory Rate 16 br/min 04/26/2025 18:44:[address] [place] [address] Systolic Blood Pressure 112 mm[Hg] 04/16/2023 22:18:[address] [place] [address] Diastolic Blood Pressure 72 mm[Hg] 04/16/2023 22:18:[address] [place] [address] Temperature Oral 36.8 Kenzie 04/16/2023 22:18:[address] [place] [address] Blood Pressure Manual Automatic 04/16/2023 22:18:[address] [place] [address] BP Site Left arm 04/16/2023 22:18:[address] [place] [address] Mean Arterial Pressure, Cuff (Calc) 85 mm[Hg] 04/16/2023 22:18:[address] [place] [address] Respiratory Rate 15 br/min 04/16/2023 22:18:[address] [place] [address] Peripheral Pulse Rate 74 bpm 04/16/2023 22:18:[address] [place] [address] Systolic Blood Pressure 142 mm[Hg] 12/24/2022 14:35:00 0929D-SI-K-17th [facility] Diastolic Blood Pressure 95 mm[Hg] 12/24/2022 14:35:00 3758G-LY-T-17th [facility] Blood Pressure Manual Automatic 12/24/2022 14:35:00 4556S-AF-K-17th [facility] BP Site Right arm 12/24/2022 14:35:00 0364C -AF-C-17th [facility] Mean Arterial Pressure, Cuff (Calc) 111 mm[Hg] 12/24/2022 14:35:00 2691G-ED-M-1 7th [facility] Respiratory Rate 16 br/min 12/24/2022 14:35:00 3971O-PU-J-17th [facility] Peripheral Pulse Rate 92 bpm 12/24/2022 14:35:00 5157G-QO-O-17th [facility] Temperature Oral 36.8 Kenzie 12/24/2022 14:35:00 9843W-QH-M-17th [facility] Mean Arterial Pressure, Cuff (Calc) 113 mm[Hg] 11/06/2022 15:20:00 6338S-VG-U-1 7th [facility] Respiratory Rate 16 br/min 11/06/2022 15:20:00 3497O-AY-F-17th [facility] Peripheral Pulse Rate 90 bpm 11/06/2022 15:20:00 8317T-NR-P-17th [facility] Temperature Oral 36.9 Kenzie 11/06/2022 15:20:00 7431T-SV-Z-17th [facility] Systolic Blood Pressure 140 mm[Hg] 11/06/2022 15:20:00 5029A-PV-Y-17th [facility] Diastolic Blood Pressure 99 mm[Hg] 11/06/2022 15:20:00 1576P-IU-F-17th [facility] Temperature Oral 37 Kenzie 04/08/2023 16:56:[address] [place] [address] Mean Arterial Pressure, Cuff (Calc) 98 mm[Hg] 04/08/2023 16:56:[address] [place] [address] Respiratory Rate 14 br/min 04/08/2023 16:56:[address] [place] [address] Peripheral Pulse Rate 78 bpm 04/08/2023 16:56:[address] [place] [address] Systolic Blood Pressure 127 mm[Hg] 04/08/2023 16:56:[address] [place] [address] Diastolic Blood Pressure 84 mm[Hg] 04/08/2023 16:56:[address] [place] [address] BP Site Right arm 04/08/2023 16:56:[address] [place] [address] Blood Pressure Manual Automatic 04/08/2023 16:56:[address] [place] [address] Encounters Combined list of: 1) Encounters from Department of Veterans Affairs facilities going backup to the last 18 months, not all VA inpatient encounters are included; 2) Encounters from the Department of Defense facilities going backup to 280 months. Location Location Details Encounter Type Encounter Number Reason For Visit Attending Provider ADM Date DC Date Status Disposition Source [facility](Me dShantanu Assessmen /1523) OUTPATIENT [id number] Notes Entered by: Jayden VAUGHN 25 May 2015 0734 ------- ------- ------- ------- -- G6PD RAFFI LOZA 05/25 Released w/o Limitations [facility]( Med. Assessm ent/152 3) [facility](Op tometry [facility] 1523) OUTPATIENT [id number] NEGRA NARAYAN 05/25 Released w/o Limitations [facility]( Optomet ry [facility] 1523) [facility](Au diology [facility] 1523) OUTPATIENT [id number] KT OSEI 05/25 Released w/o Limitations [facility]( Audiolo gy [facility] 1523) [facility](Im ms/[place] [facility] P[facility]) OUTPATIENT [id number] Notes Entered by: RADHA PERALTA 21 Sep 2015 0850 ------- ------- ------- ------- -- LAURENEN MARY WOODARD RADHA PERALTA 09/21 Released w/o Limitations [facility]( Imms/We llness Cl Px) [facility](Im ms/[place] [facility]) OUTPATIENT [id number] Notes Entered by: KIRA PALUMBO 15 Feb 2016 1204 ------- ------- ------- ------- -- Deploym ent Shots SONI BERGER 02/14 Released w/o Limitations [facility]( Imms/We llness Cl Px) [facility](Mi litary Med [place]) OUTPATIENT [id number] JAGDISH Tejada 09/18 Released w/o Limitations [facility]( Militar y Med [place]) [facility](Im ms/[place] [facility]) OUTPATIENT [id number] Notes Entered by: BALDOMERO ARVIZU 18 Sep 2016 1443 ------- ------- ------- ------- -- FLU SHOT BALDOMERO ARVIZU 09/18 Released w/o Limitations [facility]( Imms/We llness Cl Px) [facility] litary [facility] [place]) TELE CONSULT [id number] Notes Entered by: Judy AGUILA 29 Nov 2016 1438 ------- ------- ------- ------- -- TRA Rodriguez 11/29 [facility]( Militar y Med [place]) [facility](Fa Med PCMH Team 1) OUTPATIENT [id number] Possibl e STD Zak e HAYDEE MORGAN 06/18 Released w/o Limitations [facility]( [facility] Med PCMH Team 1) [facility](Im ms/[place] [facility]) OUTPATIENT [id number] Notes Entered by: CHANTELLE CAMARGO SA 24 Jun 2017 1204 ------- ------- ------- ------- -- HPV9, Flu Vacc BIENVENIDO SANCHEZ E 06/24 Released w/o Limitations [facility]( Imms/We llness Cl Px) [facility](Mi litary Med [place]) OUTPATIENT [id number] QUIANA GONGORA 09/23 Released w/o Limitations [facility]( Militar y Med [place]) [facility] [place] OUTPATIENT [id number] Notes Entered by: STEPHANIE SIMPSON 12 Nov 2017 1125 ------- ------- ------- ------- -- Audiogr am CHALINO SIMPSON 11/12 [place]ased w/o Limitations [place] [facility] [place] Theater Facility OUTPATIENT [id number] Theater Provider 01/02 Released w/o Limitations Theater Facilit y [place] [facility]( [facility] [place]) OUTPATIENT [id number] Notes Entered by: Gloria MATOS 27 Oct 2018 0936 ------- ------- ------- ------- -- audiogr am CHALINO SIMPSON 10/27 Released w/o Limitations [facility] [place]) [place] [facility] earing Conserv[facility]) OUTPATIENT [id number] 4 503,,,, ,VG SHAYNE MARK 11/08 Released w/o Limitations [facility] Theater Facility OUTPATIENT [id number] Theater Provider 12/07 Released w/o Limitations Theater Facilit y [facility] OUTPATIENT [id number] 1 Theater Provider 03/07 Released w/o Limitations Theater Facilit y [facility] Facility OUTPATIENT [id number] Theater Provider 08/17 Released w/o Limitations Theater Facilit y [facility](P NavSta T1) TELE CONSULT [id number] Notes Entered by: ASHLEY CARRILLO 27 Nov 2020 1502 ------- ------- ------- ------- -- COVID results DEANDRA PANDA 11/27 Other Not Elsewhere Classified [facility](P NavSta T1) [facility] [place] [facility](Operati onal [address]) TELE CONSULT [id number] Notes Entered by: Judy GARCIA 15 May 202206 ------- ------- ------- ------- -- PPD BECKI GARCIA 05/15 [facility](Ope rationa l [address]) [facility] h(Operati onal [address]) OUTPATIENT [id number] Notes Entered by: GURJIT MARROQUIN 15 May 202238 ------- ------- ------- ------- -- PPD Testing BECKI GARCIA 05/15 Released w/o Limitations [facility](Ope rationa l [address]) [facility] ) OUTPATIENT [id number] Notes Entered by: TRINO RAMIREZ AIC 03 Jun 2022 1041 ------- ------- ------- ------- -- Walk in for Firefig hter exam, DVA, CVT, Depth Percept ion, GABRIELLE CALLAWAY 06/03 Released w/o Limitations [facility](Mohit thomas Optomet ry) [facility] h(Operati onal [address]) TELE CONSULT [id number] Notes Entered by: JESSICA ARRIOLA N 04 Jun 2022 0934 ------- ------- ------- ------- -- JESSICA Bond 06/04 [facility](Ope rationa l [address]) [facility](Pulmona ry Function Test NMCP) OUTPATIENT [id number] 4 [place] +/- bd CONFUCIANISM, AKIRA L 07/01 Released w/o Limitations [facility](Pul monary Functio n Test NMCP) [facility](Operati onal [address]) OUTPATIENT [id number] Notes Entered by: Judy GARCIA 05 Jul 2022911 ------- ------- ------- ------- -- BECKI Apple 07/05 Released w/o Limitations [facility](Ope rationa l [address]) [facility] Outpatient [id number] LUCINDA CAMDEN 07/06 Discharge Disposition: Home or Self Care [address]-[facility] Between Visit [id number] 07/08 Discharge Disposition: Home or Self Care [address] Between Visit [id number] 07/12 Discharge Disposition: Home or Self Care [address] TeleHealth [id number] Elevate d blood-p ressure reading , without diagnos is of olivia caT faheem galindo minor [facility] Discharge Disposition: Home or Self Care 0127C-N [facility] 0127M-[facility] Between Visit [id number] 08/15 Discharge Disposition: Home or Self Care 0127M-N [facility] Procedures Combined list of: 1) Procedures from Department of Veterans Affairs facilities going back up to thelast 18 months, not all VA non-surgical procedures are included; 2) All procedures from the Department of Defense facilities. Procedure Procedure Type Code Date Perfomer Comments Sourc e No data available for this section Ambul[facility] ry Pharmacy PURE TONE AUDIOMETRY (THRESHOLD), AUTOMATED; AIR ONLY 2018 DoD PURE TONE AUDIOMETRY (THRESHOLD), AUTOMATED; AIR ONLY 2017 DoD POLIOVIRUS VACCINE, INACTIVATED (IPV), FOR SUBCUTANEOUS OR INTRAMUSCULAR USE 2014 [facility] ADENOVIRUS VACCINE, TYPE 7, LIVE, FOR ORAL USE 2014 [facility] VIS FUNCT SCREEN,AUTOMAT/VIRGIE I-AUTOMAT BILAT QUANT DETERM VISUAL ACUITY,OCULAR ALIGN,COLOR VISION,PSEUDOISOCH ROMAT PLATES,& FIELD VIS (MAY INC ALL/SOME SCRN DETERM FOR CONTRAST SENSITIV,VIS UND GLARE) 2014 [facility] PURE TONE AUDIOMETRY (THRESHOLD); AIR ONLY 2014 [facility] EDUCATION &TRAINING, PATIENT SELF-MGT QUALIFIED, NONPHYSICIAN HEALTH BLASTING ENTRY SPECIALIST USING STANDARDIZED CURRICULUM, [id number] W THE PATIENT (COULD INCL CAREGIVER/FAMILY) EA 30 MIN; 5-[address] [facility] ADMINISTRATION OF PATIENT-FOCUSED HEALTH RISK ASSESSMENT INSTRUMENT (EG, HEALTH HAZARD APPRAISAL) WITH SCORING AND DOCUMENTATION, PER STANDARDIZED INSTRUMENT 2016 [facility] INFLUENZA VIRUS VACCINE, QUADRIVALENT (IIV4), SPLIT VIRUS, 0.5 ML DOSAGE, FOR INTRAMUSCULAR USE 2016 [facility] SCREENING TEST OF VISUAL ACUITY, QUANTITATIVE, BILATERAL 2015 [facility] INFLUENZA VIRUS VACCINE, QUADRIVALENT (IIV4), SPLIT VIRUS, 0.5 ML DOSAGE, FOR INTRAMUSCULAR USE 2015 [facility] HUMAN PAPILLOMAVIRUS VACCINE TYPES 6, 11, 16, 18, 31, 33, 45, 52, 58, NONAVALENT (9VHPV), 2 OR 3 DOSE SCHEDULE, FOR INTRAMUSCULAR USE 2015 [facility] INFLUENZA VIRUS VACCINE, QUADRIVALENT, LIVE (LAIV4), FOR INTRANASAL USE 2014 [facility] OPHTHALMOLOGICAL SERVICES: MEDICAL EXAMINATION AND EVALUATION WITH INITIATION OF DIAGNOSTIC AND TREATMENT PROGRAM; INTERMEDIATE, NEW PATIENT 2021 [facility] SKIN TEST; TUBERCULOSIS, INTRADERMAL 2021 [facility] PATIENT EDUCATION, NOT OTHERWISE CLASSIFIED, NON-PHYSICIAN PROVIDER, INDIVIDUAL, PER SESSION 2019 [facility] Physician Services Special Review / Reporting Of Patient Status Physician Services Special Review / Reporting Of Patient Status [id number] [facility] Threshold Audiogram (Pure Tone) Automated Threshold Audiogram (Pure Tone) Automated 0208T [address] [facility] Threshold Audiogram (Pure Tone) Automated Threshold Audiogram (Pure Tone) Automated 0208T [address] [facility] Audiometry Group Testing Audiometry Group Testing [address] [facility] Preventive Medicine Administration Of Health Risk Questionnaire Patient-Focused Preventive Medicine Administration Of Health Risk Questionnaire Patient-Focused [address] [facility] Human Papilloma Virus Vaccine, Nonavalent Human Papilloma Virus Vaccine, Nonavalent 59232 2016 BIENVENIDO SANCHEZ HPV9; Series #: 2; .5 mL; IM; Left Arm; Mfg: Merck; Lot: [id number]; VIS given (Celina: 09/20/2016). DoD Immunization Administration By Injection, One Vaccine Immunization Administration By Injection, One Vaccine 370822016 BIENVENIDO SANCHEZ Immunization Administration By Injection, Each Additional Vaccine Immunization Administration By Injection, Each Additional Vaccine 107702016 BIENVENIDO SANCHEZ Influenza Split Virus Vaccine IM With Preservative Quadrivalent 0.50mL Dosage Influenza Split Virus Vaccine IM With Preservative Quadrivalent 0.50mL Dosage 63232 2016 BIENVENIDO SANCHEZ Influenza, injectable, quadrivalent; Series #: 1; .5 mL; IM; Right Arm; Mfg: Seqirus; Lot: [id number]; VIS given (Celina: 05/26/2015). [facility] Screening Test Of Visual Acuity, Quantitative, Bilateral Screening Test Of Visual Acuity, Quantitative, Bilateral 33374 2015 JAGDISH GROSSMAN [place] onofre [place] ment, performed by non-physician Wellness assessment, performed by non-physician S5190 2015 JAGDISH GROSSMAN Influenza Split Virus Vaccine IM With Preservative Quadrivalent 0.50mL Dosage 2015 BALDOMERO ARVIZU Influenza, injectable, quadrivalent; Series #: 1; .5 mL; IM; Left Arm; Mfg: Seqirus; Lot: [id number]; VIS given (Celina: 05/26/2015). DoD Immunization Administration By Injection, One Vaccine Immunization Administration By Injection, One Vaccine 994992015 BALDOMERO ARVIZU Immunization Administration By Injection, One Vaccine Immunization Administration By Injection, One Vaccine 602302015 KIRA PALUMBO Immunization Administration By Injection, Each Additional Vaccine Immunization Administration By Injection, Each Additional Vaccine 847922015 KIRA PALUMBO [facility] Hepatitis B Vaccine (Active) Adult Dosage Hepatitis B Vaccine (Active) Adult Dosage 52877 2015 MATIAS PALUMBODIANDRA Castro Hep B - Adult; Series #: 3; 1.0 mL; IM; Right Arm; Mfg: Groupspeak; Lot: [id number]; VIS given (Celina: 11/21/11). [facility] Vaccines Viral Citizen Of [place] Encephalitis Inactivated, Intramuscular Vaccines Viral Citizen Of [place] Encephalitis Inactivated, Intramuscular 52511 2015 KIRA PALUMBO Citizen Of [place] Encephalitis IM; Series #: 1; .5 mL; IM; Right Arm; Mfg: Eventful; Lot: [id number]; VIS given (Celina: 11/12/13). [facility] Human Papilloma Virus Vaccine, Nonavalent 2015 LINWOODKIRA HPV9; Series #: 1; .5 mL; IM; Left Arm; Mfg: Expanite; Lot: [id number]; VIS given (Celina: 02/01/15). [facility] Influenza Virus Vaccine Live Attenuated Intranasal Quadrivalent Influenza Virus Vaccine Live Attenuated Intranasal Quadrivalent 35132 2014 RADHA PERALTA Influenza, live, intranasal, quadrivalent; Series #: 1; .2 mL; IN; Intranasal; Mfg: MadeiraCloud; Lot: [id number]; VIS given (Celina: 05/26/2015). [facility] Immunization Admin By Intranasal / Oral Route One Vaccine Immunization Admin By Intranasal / Oral Route One Vaccine [address] [facility] Threshold Audiogram (Pure Tone) Threshold Audiogram (Pure Tone) 89347 2014 KT OSEI Audiometry Group Testing Audiometry Group Testing 42716 2014 KT OSEI Visual Function Screening Visual Function Screening [address] [facility] Patient Counseling Medical Management Five To Eight Patients Patient Counseling Medical Management Five To Eight Patients [id number] [facility] Skin Test Anergy Tuberculin Intradermal Skin Test Anergy Tuberculin Intradermal 92432 GURJIT MARROQUIN IPPD; Series #: 1; 0.1 mL; ID; Left Arm; Mfg: Sanofi Pasteur; Lot: [id number]; VIS given. [facility] Ophthalmological New Patient Start Intermediate Level Care Ophthalmological New Patient Start Intermediate Level Care [id number] [facility] Spirometry Post-bronchodilato r Spirometry Post-bronchodilato r [address] [facility] Threshold Audiogram (Pure Tone) Automated Threshold Audiogram (Pure Tone) Automated 0208T SHAYNE MARK [facility] Patient education, not otherwise cla ified, non-physician provider, individual, per se ion Patient education, not otherwise classified, non-physician provider, individual, per session [id number] [facility] Social History Combined list of available smoking, tobacco, and other social history from Department of Defense and Veterans Affairs facilities. Social History Type Response Date Comment Sourc e Tobacco Frequent/Daily expos ure to secondhand smoke in indoor/confined spaces No. Never-cigarette user Cigarette use:. none Other Tobacco use:. Ambulatory Pharmacy Sexual Orientation Ambula tory Pharmacy Gender identity Ambulator y Pharmacy Sex Representation Unknow n Organization This section is an empty social history section. [facility] Assessment and Plan Combined list of future care activities from Department of Defense and Veterans Affairs facilities (e.g., assessment and plan notes, appointments, orders, and referrals). Additional future care activities may be listed in the Plan of Care section. Result Assessment and Plan Date Source Assessment and Plan Extracted from:Title : FM- V- Lab review Author: LUCINDA ARRIOLA NP, Primary Care, Women's Health Date: 08/11/25 1. Elevated blood pressure reading without diagnosis of hypertension He has been checking his BP at home but has not had a chance to drop this off as of yet. he will drop off tomorrow before going to work so that I can review. 2. Alpha thalassemia trait Discussed with patient. No symptoms normal iron panel *Signed by: Lucinda Arriola , [place], USN Family Nurse Practitioner, DNP [place], [place] Family Medicine Department Extracted from:Title: - BP f/u, lab review Author: LUCINDA ARRIOLA NP Date: 07/06/25 1. Elevated blood pressure reading without diagnosis of hypertension Seen for PHA 6 weeks ago and told to f/u with PCM to review labs and BP readings. Has not been able to monitor BP at home Reviewed labs today EKG today to establish baseline Will send BP readings on portal in 2-3 weeks and I will review, he still needs to buy a BP cuff. 2. Abnormal blood test low mcv, mch, mchc, nl hgb ad hct Will add on additional labs Pt reports h/o G6PD, diagnosed in [facility] Ordered: Alpha-Thalassemia Analysis [id number] Hemoglobin Electrophoresis Iron Group Pathologist Smear Review Vitamin B12 and Folate Panel 3. Vitamin D deficiency Low vitamin D on recent lab. Explained that vitamin D promotes bone resorption and intestinal absorption of calcium and phosphorous, thereby promoting bone mineralization. Vitamin D is synthesized under the skin with the help of sunlight. Additionally, vitamin D can be ingested from fish or plant sources. Low Vitamin D can cause feelings of fatigue and other vague symptoms. Normal is >30ng/mL (50nmol/L). Vitamin D deficiency is <12ng/mL (30nmol/L). - Current Vitamin D level=24 20-30ng/mL - Recommend daily D3 2000 IU PO daily, recheck in 1 year. Orders: cholecalciferol(Vitamin D3 25 mcg (1000 intl units) oral tablet), 2 tab(s), Oral, Daily, # 180 tab(s), 3 total refill(s), Maintenance, Pharmacy: [facility] [Not filled] * Received verbal verification from patient that they are active in the [facility] Patient Portal. Explained that myself or the staff will be reaching out to them on the portal with any and all diagnostic testing that is ordered today, and that this will be a great way to communicate with our clinic about any other needs. All questions answered and patient expresses willingness to be an active participant in their health through the portal. *Signed by: Lucinda Arriola , MT, N Family Nurse Practitioner, DNP [place], [place] Family Medicine Department Extracted from:Title: FM- MHA/PHA + re-enlistment paperwork Author: LUCINDA ARRIOLA NP Date: 05/16/25 1. Caregiver health check completed The patient s current medications and allergies were reviewed, reconciled, and discussed between the provider and patient. No learning disability, hearing, vision, or other language/communication problems noted. Assessment was discussed with patient, and treatment plan proposed to address patient's stated therapeutic goals. Discussed healthy habits to include 2-3 servings of fruits and vegetables each daily, healthy exercise, limiting alcohol use, avoiding tobacco products, and safe sex practices. Discussed stress reduction as needed, good sleep habits, and immunization maintenance. DENTAL CATEGORY _2__. SM taught the behavior health resources available. SM verbalized understanding of instruction. PHA completed [employer] 6168.3. Vaccination status has been reviewed and member is up to date or has a plan for remediation established. Dental readiness reviewed as above with any discrepancies to be managed per local dental clinic. No duty limiting conditions identified. Any acute issues are identified above and follow-up appointments with the PCM will be made or are already being addressed. 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 2. Elevated blood pressure reading without diagnosis of hypertension Elevated blood pressure reading as noted per ACC/AHA guidelines, without the diagnosis of HTN today. Elevated BP= SBP 120-129 AND DBP >80 - Lifestyle modifications are first line to lowering BP. Discussed the importance of weight loss and the direct impact it has on lowering BP. Lowering weight by about 1kg can translate into approximately 1mmHG lowering of BP. Recommended avoidance of high sugary/processed foods/trans fats. Should increase fiber/lean protein in diet. Eliminate sugary drinks. Stressed the importance of exercise in losing weight. A good exercise regimen will include 90-150minutes of aerobic exercise/week, 90-150minutes of dynamic resistance training/week, and three sessions/week of isometric resistance exercise. Need to exercise with enough intensity to elevate heart rate to at least 65-80%, in order to gain the most benefits. - Offered nutritional referral, pt would like to pursue. - Patient to record home BP readings every day x 2 weeks. Recommend validating monitor in clinic. Do not use wrist BP monitor - Labs fasting today - F/U in clinic in 1 month to discuss further management based on BP readings. - Patient verbalized understanding and is in agreement with plan Ordered: Basic Metabolic Panel Hemoglobin A1c Hemogram Hepatic Function Panel Lipid Panel Microalbumin Panel, Urine Thyroid Stimulating Hormone Vitamin D 25 Hydroxy Level 3. Sleep problem Sleep referral entered. Ordered: Referral Request 2.0 - DoD 4. Administrative statuses Record review complete. 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 Reviewed all positive answers on 2807, none are disqualifying or duty limiting. Suitable for re-enlistment . 2807-1 and NPPS 1160/1 signed and placed in OUT box for MIL[employer] team to finish processing. *Signed by: LCDR Lucinda Arriola DNP Family Medicine Provider [place], [place] Extracted from:Title: Audio Note Author: SAMSON EPSTEIN Date: 03/16/25 Chief Complaint Annual audiogram History of Present Illness Annual monitoring/ medical surveillance audiogram due to hearing conservation enrollment Physical Exam See [id number] Audiogram Tests Audiometric results reviewed with patient. Assessment/ Plan. No STS found. Member qualified on SECNAV 5100 FORM and form signed Hearing Health Education: 1:1 instruction to Pt on noise hazards, noise effects on the ear, and correct usage of HPDs. Provided instruction on how properly insert handrolled foam earplug HPD and check for seal today. Pt was able to demonstrate good HPD insertion technique and depth after reinstruction. 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 Pt. is advised to wear HPD whenever exposed to hazardous noise and proper wear of double HPD in extreme noise was covered in today s training. The patient s questions were answered, and guidance provided for future appointments. Return to clinic annually for audiogram. [facility]) SAMSON EPSTEIN [facility] AUDIO TECH Extracted from:Title: AUDIO NOTE Author: LAVON LOZA Date: 03/29/24 Diagnosis: 1. Encounter for hearing conservation and treatment Comment: Ordered: Patient Education NOC Non-Phys Provider,Group/Session [id number]; 03/29/2024 09:22:00 PDT by DIMPLE VALDEZ [employer] Pure Tone Audiometry Automated Air Only 0208T; 03/29/2024 09:22:00 PDT End of Orders Chief Complaint Annual audiogram History of Present Illness Annual monitoring/ medical surveillance audiogram due to hearing conservation enrollment Physical Exam See [id number] Audiogram Tests Audiometric results reviewed with patient. Assessment/ Plan. No STS found. Member qualified on SECNAV 5100 FORM and form signed Hearing Health Education: 1:1 instruction to Pt on noise hazards, noise effects on the ear, and correct usage of HPDs. Provided instruction on how properly insert handrolled foam earplug HPD and check for seal today. Pt was able to demonstrate good HPD insertion technique and depth after reinstruction. 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 Pt. is advised to wear HPD whenever exposed to hazardous noise and proper wear of double HPD in extreme noise was covered in today s training. The patient s questions were answered, and guidance provided for future appointments. Return to clinic annually for audiogram. Lavon Loza Occupational Health Inspector [employer] [place], [place] Extracted from:Title: PHA Clinic Note Author: AYUSH POTTER NP Date: 03/11/24 1. Encounter for issue of other medical certificate Reviewed documentation of height and weight, current medical conditions and deployment related health problems, to include screening for traumatic brain injury exposure, allergies, medications, required immunizations, medical readiness laboratory tests, audiology, and optometry examinations. Completed screenings and provided patient education as appropriate. Assessed and reviewed responses to AUDIT= 3, PCL-C= 0, PHQ-8=0 (no elevated risk) screening tools, at this time no tasking or consults needed. Vine Pruner is aware of services available (911, One [facility], [employer] Sales [employer], Walk in , Walk in ER, Notify chain of command, etc) and how to contact them if needed. Vine Pruner denies suicidal and homicidal ideation. Preventative services reviewed and discussed per age, race, and gender. Reviewed immunization history and assessed immunization status. Reviewed physical activity including aerobic and isometric exercises. Reviewed risk sexual risk factors and previous STD testing date, including HIV, and assessed as not at significant risk for acquiring STDs including HIV infection. Reviewed readiness labs and examinations needed including recommendation for lipid screening every 5 years beginning at age 35. Compared medications reported by Vine Pruner to active medication list in MHSG/JLV and any variances were documented. Any complaints or issues identified while conducting the PHA have been addressed and or referred back to the Vine Pruner's PCM for care. Vine Pruner advised to follow up with PCM, Behavioral Health, ED/911, or [facility] as needed for continuation of care, and/or further evaluation during exacerbations of physical and/or psychological illness or injury. See PHA document for additional information. Twenty minutes of total time spent reviewing records, discussing health concerns and preventative health measures with Vine Pruner. Extracted from:Title: IMMS NOTE Author: RK MCFADDEN Date: 08/13/23 Vaccination given FLU IMMUNIZATION SCREENING QUESTIONNAIRE Verified right patient, right vaccine/diluent, right time, right dosage, right route, right site, and right documentation. 1) Are you currently sick, feel ill, or have a fever over 100 degrees? (NO) 2) Have you had a serious reaction, other than Flu-like symptoms, following an influenza vaccine in the past? (NO) 3) Have you ever experienced numbness or weakness of your legs or elsewhere (Guillain- Alcantara syndrome) within 6 weeks of receiving an influenza vaccine? (NO) 4) Have you ever had, or been treated for, a severe allergic reaction (flushing, hives, wheezing, and/or low blood pressure) to any vaccine, or do you have a severe allergy to any of the following: eggs, chicken, gelatin, MSG,Gentamicin, Neomycin, Polymyxin-B, thimerosal, formaldehyde, latex, or other vaccine component? (NO) 5) If your child is between 6 months and 8 years of age, has your child received at least two (2) previous NOT doses of influenza vaccine? (N/A) 6) Have you received an influenza vaccine within the past 30 days? (NO) 7) Are you, or might you be, ? ( NO) Patient has verbalized the answer to this questionnaire. Patient in clinic for immunizations. Vaccine information reviewed with patient and current VIS was given. Medications were reviewed and allergies verified. Patient/caregiver gives verbal consent for immunizations at bedside. Patient given: Vaccine Name: Influenza Quadrivalent (Afluria IIV4 PF 3YO+) Dosage: 0.5 ml LOT #: [id number] Expiration Date: 04/18/2024 Location: LEFT DELTOID Route: Intramuscular VIS: 05/25/2021 No ASE to vaccine noted prior to patient leaving clinic. Patient advised to wait 15 minutes in waiting room to monitor for adverse reactions. [facility] Immunizations Department Extracted from:Title: FM - Left shoulder pain, PRT waiver Author: TANO NEWBY Date: 04/16/23 1. 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 He was in physical therapy which was helping however he transferred from [facility] without completing his therapy. He continues to have difficulty with push-ups and planks due to his left shoulder pain. Discussed in length regarding implications of PRT waiver, continued LLD, or potential LIMDU status. Patient verbalized understanding. - Member is waived from participating in all three events of PRT pending PT and shoulder recovery. 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 2. Left shoulder pain On physical exam he has pain on left anterior shoulder and left AC joint region. He had pain with raising his arm up, abduction, and adduction. From his exam it is suggestive of left shoulder tendinitis however we will keep rotator cuff injury on differential. Will continue with physical therapy for now and pain management with OTC NSAIDs and topicals. Provided PRT waiver for the patient. Currently patient is on 60 days of LLD, no further LLD provided today. If patient continues to have pain requiring another LLD, discussed that if he reaches 90 days of LLD then he will be placed on LIMDU for further evaluation. - Follow-up as needed, sooner if symptoms worsen or new symptoms develop Disclaimer: I am using voice recognition software to dictate my encounter. As such, there may be typographical or grammatical errors that are missed in proofreading the document. Total time spent with patient 20 minutes. Total time reviewing charts and completing notes 20 minutes. Signed by: Tano Newby PA-C LT, [facility] Extracted from:Title: FM-l shoulder pain Author: VINNY MOONEY PA Date: 04/08/23 Orders: diclofenac topical(Voltaren 1% topical gel), See instructions, Apply 2 grams (upper extremities) or 4 grams (lower extremities) to affected area topically four times daily as needed for pain. Max total body dose of 32 grams per day, # 100 g, 0 total refill(s), Maintenance, Apply 2 grams (upper e... Referral Request 2.0 I spent a total of 30 minutes reviewing chart notes, evaluating and treating this patient, as well as documenting this encounter. A portion of this encounter was documented using voice recognition software. Some word misplacements or errors may be present in the final note. Signed by: Vinny Mooney PA-C Physician Vitreo Retinal Surgeon [facility] Extracted from:Title: Cold sxs Author: GABRIELA CASTELLANO PA-C Date: 12/24/22 1. 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 History and physical exam consistent with upper respiratory infection. No sinus tenderness, uvular deviation, or other concerning symptoms. Most likely viral, and will resolve over the next couple of days. Encouraged hydration, good hand hygiene. Patient will RTC if symptoms persist for reevaluation of symptoms at that time, will consider alternative treatment. Patient to seek medical attention if fever, shortness of breath, difficulty breathing, difficulty swallowing occur. SIQ for 48 hours and will call with results. PVUA ACTIVE DUTY REVIEW: - WWQ: Y - Fit for Duty: Y - Meets Medical Standards Directory (MSD) or other branch equivalent: Y - Fitness assessment exemption (469)/other branch equivalent was needed/granted: N/N Ordered: ibuprofen(ibuprofen 600 mg oral tablet), 1 tab(s), Oral, every 6 hr, # 40 tab(s), 0 total refill(s), Acute, 01/24/2023, 1 tab(s) Oral every 6 hr, Pharmacy: [facility] [Not filled] pseudoephedrine(Sudafed 30 mg oral tablet), 2 tab(s), Oral, every 6 hr, # 30 tab(s), 0 total refill(s), Acute, 01/24/2023, 2 tab(s) Oral every 6 hr, Pharmacy: [facility] [Not filled] benzonatate(Tessalon Perles 100 mg oral capsule), 1 cap(s), Oral, TID, PRN cough, X 10 days, # 30 cap(s), 0 total refill(s), Acute, 01/03/2023, 1 cap(s) Oral TID,x10 days,PRN:cough, Pharmacy: [facility] [Not filled] SC2/FLU A/FLU B ANTIGEN 2. Body mass index [BMI] 40.0-44.9, adult Ordered: ibuprofen(ibuprofen 600 mg oral tablet), 1 tab(s), Oral, every 6 hr, # 40 tab(s), 0 total refill(s), Acute, 01/24/2023, 1 tab(s) Oral every 6 hr, Pharmacy: [facility] [Not filled] pseudoephedrine(Sudafed 30 mg oral tablet), 2 tab(s), Oral, every 6 hr, # 30 tab(s), 0 total refill(s), Acute, 01/24/2023, 2 tab(s) Oral every 6 hr, Pharmacy: [facility] [Not filled] benzonatate(Tessalon Perles 100 mg oral capsule), 1 cap(s), Oral, TID, PRN cough, X 10 days, # 30 cap(s), 0 total refill(s), Acute, 01/03/2023, 1 cap(s) Oral TID,x10 days,PRN:cough, Pharmacy: [facility] [Not filled] Extracted from:Title: L shoulder pain Author: CANDIS LANE MD Date: 11/06/22 1. Pain of left shoulder joint Patient is a 27 yo AD member here for left shoulder pain for the last year. Physical exam and history are consistent with labral and long head of bicep tendon injury. Advised to use tylenol and ibuprofen, ice and heat for pain control. Given stretches, exercises, and massages to help as well. Referring to PT today. Follow up if symptoms persist or worsen. Ordered: Referral Request 2.0 2. BMI 30+ - obesity Discussed maintaining or losing weight based on BMI with lifestyle, diet and exercise changes. All patient's questions were answered, patient understands and agrees with the plan. I have reviewed and agree with nurse/tech documentation. ASIMS reviewed. Offered patient after visit summary, patient declined. WWQ: Y Fit for Duty: Y Meets Medical Standards Directory (MSD) or other branch equivalent: Y Fitness assessment exemption (469) or other branch equivalent: Yes, no upper body workouts for 30 days. Extracted from:Title: Group FF Brief Author: JUAN ROTH NP Date: 08/07/22 1. 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 per the [facility] TIG 1582-18 for [facility] 1582, attachment 3: Health History completed Respirator Questionnaire completed Vital Signs completed Visual Acuity and Horizontal Field of Vision completed Physical Exam completed Spirometry completed Audiogram completed Chest X-Ray completed EKG completed Lab studies: CBC, CMP, UA ordered today Immunizations: Tetanus, Hepatitis B, Hepatitis A up to date The patient participated in a 60 minuted group briefing to include education on hearing protections, heat/hydration, proper use of sunscreen, nutrition, exercise, and supplement use. The member completed a respiratory fitness questionnaire and upon my review the member is: CLEARED For SCBA fit testing and wear during their training. _ Ordered: CBC w/ Diff Comprehensive Metabolic Panel Urinalysis with Culture if Indicated Future Scheduled TestsLaboratoryHIV-1/2 AG/AB 4G CDD 12/23/24Pathologist Smear Review 07/06/25 10/11/[address] [place] [address] Assessment and Plan Extracted from:Title : FM- V- Lab review Author: LUCINDA ARRIOLA NP, Primary Care, Women's Health Date: 08/11/25 1. Elevated blood pressure reading without diagnosis of hypertension He has been checking his BP at home but has not had a chance to drop this off as of yet. he will drop off tomorrow before going to work so that I can review. 2. Alpha thalassemia trait Discussed with patient. No symptoms normal iron panel *Signed by: Lucinda Arriola [facility], [place], N Family Nurse Practitioner, DNP [place], [place] Family Medicine Department Extracted from:Title: FM- BP f/u, lab review Author: LUCINDA ARRIOLA NP Date: 07/06/25 1. Elevated blood pressure reading without diagnosis of hypertension Seen for PHA 6 weeks ago and told to f/u with PCM to review labs and BP readings. Has not been able to monitor BP at home Reviewed labs today EKG today to establish baseline Will send BP readings on portal in 2-3 weeks and I will review, he still needs to buy a BP cuff. 2. Abnormal blood test low mcv, mch, mchc, nl hgb ad hct Will add on additional labs Pt reports h/o G6PD, diagnosed in [facility] Ordered: Alpha-Thalassemia Analysis [id number] Hemoglobin Electrophoresis Iron Group Pathologist Smear Review Vitamin B12 and Folate Panel 3. Vitamin D deficiency Low vitamin D on recent lab. Explained that vitamin D promotes bone resorption and intestinal absorption of calcium and phosphorous, thereby promoting bone mineralization. Vitamin D is synthesized under the skin with the help of sunlight. Additionally, vitamin D can be ingested from fish or plant sources. Low Vitamin D can cause feelings of fatigue and other vague symptoms. Normal is >30ng/mL (50nmol/L). Vitamin D deficiency is <12ng/mL (30nmol/L). - Current Vitamin D level=24 20-30ng/mL - Recommend daily D3 2000 IU PO daily, recheck in 1 year. Orders: cholecalciferol(Vitamin D3 25 mcg (1000 intl units) oral tablet), 2 tab(s), Oral, Daily, # 180 tab(s), 3 total refill(s), Maintenance, Pharmacy: [facility] [Not filled] * Received verbal verification from patient that they are active in the [facility] Patient Portal. Explained that myself or the staff will be reaching out to them on the portal with any and all diagnostic testing that is ordered today, and that this will be a great way to communicate with our clinic about any other needs. All questions answered and patient expresses willingness to be an active participant in their health through the portal. *Signed by: Lucinda Arriola [facility], [place], N Family Nurse Practitioner, DNP [place], [place] Family Medicine Department Extracted from:Title: FM- MHA/PHA + re-enlistment paperwork Author: LUCINDA ARRIOLA NP Date: 05/16/25 1. Caregiver health check completed The patient s current medications and allergies were reviewed, reconciled, and discussed between the provider and patient. No learning disability, hearing, vision, or other language/communication problems noted. Assessment was discussed with patient, and treatment plan proposed to address patient's stated therapeutic goals. Discussed healthy habits to include 2-3 servings of fruits and vegetables each daily, healthy exercise, limiting alcohol use, avoiding tobacco products, and safe sex practices. Discussed stress reduction as needed, good sleep habits, and immunization maintenance. DENTAL CATEGORY _2__. SM taught the behavior health resources available. SM verbalized understanding of instruction. PHA completed IAW SECNAVINST 6190.3. Vaccination status has been reviewed and member is up to date or has a plan for remediation established. Dental readiness reviewed as above with any discrepancies to be managed per local dental clinic. No duty limiting conditions identified. Any acute issues are identified above and follow-up appointments with the PCM will be made or are already being addressed. 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 2. Elevated blood pressure reading without diagnosis of hypertension Elevated blood pressure reading as noted per ACC/AHA guidelines, without the diagnosis of HTN today. Elevated BP= SBP 120-129 AND DBP >80 - Lifestyle modifications are first line to lowering BP. Discussed the importance of weight loss and the direct impact it has on lowering BP. Lowering weight by about 1kg can translate into approximately 1mmHG lowering of BP. Recommended avoidance of high sugary/processed foods/trans fats. Should increase fiber/lean protein in diet. Eliminate sugary drinks. Stressed the importance of exercise in losing weight. A good exercise regimen will include 90-150minutes of aerobic exercise/week, 90-150minutes of dynamic resistance training/week, and three sessions/week of isometric resistance exercise. Need to exercise with enough intensity to elevate heart rate to at least 65-80%, in order to gain the most benefits. - Offered nutritional referral, pt would like to pursue. - Patient to record home BP readings every day x 2 weeks. Recommend validating monitor in clinic. Do not use wrist BP monitor - Labs fasting today - F/U in clinic in 1 month to discuss further management based on BP readings. - Patient verbalized understanding and is in agreement with plan Ordered: Basic Metabolic Panel Hemoglobin A1c Hemogram Hepatic Function Panel Lipid Panel Microalbumin Panel, Urine Thyroid Stimulating Hormone Vitamin D 25 Hydroxy Level 3. Sleep problem Sleep referral entered. Ordered: Referral Request 2.0 - [employer] 4. Administrative statuses Record review complete. 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 Reviewed all positive answers on 2806, none are disqualifying or duty limiting. Suitable for re-enlistment . 2807-1 and NPPS 1160/1 signed and placed in OUT box for MILRED team to finish processing. *Signed by: LCDR Lucinda Arriola, DNP Family Medicine Provider [place], [place] Extracted from:Title: Audio Note Author: SAMSON EPSTEIN Date: 03/16/25 Chief Complaint Annual audiogram History of Present Illness Annual monitoring/ medical surveillance audiogram due to hearing conservation enrollment Physical Exam See [id number] Audiogram Tests Audiometric results reviewed with patient. Assessment/ Plan. No STS found. Member qualified on SECNAB2Brev 5100 FORM and form signed Hearing Health Education: 1:1 instruction to Pt on noise hazards, noise effects on the ear, and correct usage of HPDs. Provided instruction on how properly insert handrolled foam earplug HPD and check for seal today. Pt was able to demonstrate good HPD insertion technique and depth after reinstruction. 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 Pt. is advised to wear HPD whenever exposed to hazardous noise and proper wear of double HPD in extreme noise was covered in today s training. The patient s questions were answered, and guidance provided for future appointments. Return to clinic annually for audiogram. HM2([facility]) SAMSON EPSTEIN [facility] AUDIO TECH Extracted from:Title: AUDIO NOTE Author: LAVON LOZA Date: 03/29/24 Diagnosis: 1. Encounter for hearing conservation and treatment Comment: Ordered: Patient Education NOC Non-Phys Provider,Group/Session [id number]; 03/29/2024 09:22:00 PDT by DIMPLE VALDEZ [employer] Pure Tone Audiometry Automated Air Only [id number]; 03/29/2024 09:22:00 PDT End of Orders Chief Complaint Annual audiogram History of Present Illness Annual monitoring/ medical surveillance audiogram due to hearing conservation enrollment Physical Exam See [id number] Audiogram Tests Audiometric results reviewed with patient. Assessment/ Plan. No STS found. Member qualified on SECNAB2Brev 5100 FORM and form signed Hearing Health Education: 1:1 instruction to Pt on noise hazards, noise effects on the ear, and correct usage of HPDs. Provided instruction on how properly insert handrolled foam earplug HPD and check for seal today. Pt was able to demonstrate good HPD insertion technique and depth after reinstruction. 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 Pt. is advised to wear HPD whenever exposed to hazardous noise and proper wear of double HPD in extreme noise was covered in today s training. The patient s questions were answered, and guidance provided for future appointments. Return to clinic annually for audiogram. Lavon Loza Occupational Health Inspector [employer] [place], [place] Extracted from:Title: PHA Clinic Note Author: AYUSH POTTER NP Date: 03/11/24 1. Encounter for issue of other medical certificate Reviewed documentation of height and weight, current medical conditions and deployment related health problems, to include screening for traumatic brain injury exposure, allergies, medications, required immunizations, medical readiness laboratory tests, audiology, and optometry examinations. Completed screenings and provided patient education as appropriate. Assessed and reviewed responses to AUDIT= 3, PCL-C= 0, PHQ-8=0 (no elevated risk) screening tools, at this time no tasking or consults needed. Vine Pruner is aware of services available (911, One [facility], [employer], Walk in , Walk in ER, Notify chain of command, etc) and how to contact them if needed. Vine Pruner denies suicidal and homicidal ideation. Preventative services reviewed and discussed per age, race, and gender. Reviewed immunization history and assessed immunization status. Reviewed physical activity including aerobic and isometric exercises. Reviewed risk sexual risk factors and previous STD testing date, including HIV, and assessed as not at significant risk for acquiring STDs including HIV infection. Reviewed readiness labs and examinations needed including recommendation for lipid screening every 5 years beginning at age 35. Compared medications reported by Vine Pruner to active medication list in MHSG/JLV and any variances were documented. Any complaints or issues identified while conducting the PHA have been addressed and or referred back to the Vine Pruner's PCM for care. Vine Pruner advised to follow up with PCM, Behavioral Health, ED/911, or [facility] as needed for continuation of care, and/or further evaluation during exacerbations of physical and/or psychological illness or injury. See PHA document for additional information. Twenty minutes of total time spent reviewing records, discussing health concerns and preventative health measures with Vine Pruner. Extracted from:Title: IMMS NOTE Author: RK MCFADDEN Date: 08/13/23 Vaccination given FLU IMMUNIZATION SCREENING QUESTIONNAIRE Verified right patient, right vaccine/diluent, right time, right dosage, right route, right site, and right documentation. 1) Are you currently sick, feel ill, or have a fever over 100 degrees? (NO) 2) Have you had a serious reaction, other than Flu-like symptoms, following an influenza vaccine in the past? (NO) 3) Have you ever experienced numbness or weakness of your legs or elsewhere (Guillain- Alcantara syndrome) within 6 weeks of receiving an influenza vaccine? (NO) 4) Have you ever had, or been treated for, a severe allergic reaction (flushing, hives, wheezing, and/or low blood pressure) to any vaccine, or do you have a severe allergy to any of the following: eggs, chicken, gelatin, MSG,Gentamicin, Neomycin, Polymyxin-B, thimerosal, formaldehyde, latex, or other vaccine component? (NO) 5) If your child is between 6 months and 8 years of age, has your child received at least two (2) previous NOT doses of influenza vaccine? (N/A) 6) Have you received an influenza vaccine within the past 30 days? (NO) 7) Are you, or might you be, ? ( NO) Patient has verbalized the answer to this questionnaire. Patient in clinic for immunizations. Vaccine information reviewed with patient and current VIS was given. Medications were reviewed and allergies verified. Patient/caregiver gives verbal consent for immunizations at bedside. Patient given: Vaccine Name: Influenza Quadrivalent (Afluria IIV4 PF 3YO+) Dosage: 0.5 ml LOT #: [id number] Expiration Date: 04/18/2024 Location: LEFT DELTOID Route: Intramuscular VIS: 05/25/2021 No ASE to vaccine noted prior to patient leaving clinic. Patient advised to wait 15 minutes in waiting room to monitor for adverse reactions. Rk [facility] Immunizations Department Extracted from:Title: FM - Left shoulder pain, PRT waiver Author: TANO NEWBY Date: 04/16/23 1. 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 He was in physical therapy which was helping however he transferred from [facility] without completing his therapy. He continues to have difficulty with push-ups and planks due to his left shoulder pain. Discussed in length regarding implications of PRT waiver, continued LLD, or potential LIMDU status. Patient verbalized understanding. - Member is waived from participating in all three events of PRT pending PT and shoulder recovery. 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 2. Left shoulder pain On physical exam he has pain on left anterior shoulder and left AC joint region. He had pain with raising his arm up, abduction, and adduction. From his exam it is suggestive of left shoulder tendinitis however we will keep rotator cuff injury on differential. Will continue with physical therapy for now and pain management with OTC NSAIDs and topicals. Provided PRT waiver for the patient. Currently patient is on 60 days of LLD, no further LLD provided today. If patient continues to have pain requiring another LLD, discussed that if he reaches 90 days of LLD then he will be placed on LIMDU for further evaluation. - Follow-up as needed, sooner if symptoms worsen or new symptoms develop Disclaimer: I am using voice recognition software to dictate my encounter. As such, there may be typographical or grammatical errors that are missed in proofreading the document. Total time spent with patient 20 minutes. Total time reviewing charts and completing notes 20 minutes. Signed by: Tano Newby PA-C LT, [facility] Extracted from:Title: FM-l shoulder pain Author: VINNY MOONEY PA Date: 04/08/23 Orders: diclofenac topical(Voltaren 1% topical gel), See instructions, Apply 2 grams (upper extremities) or 4 grams (lower extremities) to affected area topically four times daily as needed for pain. Max total body dose of 32 grams per day, # 100 g, 0 total refill(s), Maintenance, Apply 2 grams (upper e... Referral Request 2.0 I spent a total of 30 minutes reviewing chart notes, evaluating and treating this patient, as well as documenting this encounter. A portion of this encounter was documented using voice recognition software. Some word misplacements or errors may be present in the final note. Signed by: Vinny Mooney PA-C Physician Vitreo Retinal Surgeon [facility] Extracted from:Title: Cold sxs Author: GABRIELA CASTELLANO PA-C Date: 12/24/22 1. 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 History and physical exam consistent with upper respiratory infection. No sinus tenderness, uvular deviation, or other concerning symptoms. Most likely viral, and will resolve over the next couple of days. Encouraged hydration, good hand hygiene. Patient will RTC if symptoms persist for reevaluation of symptoms at that time, will consider alternative treatment. Patient to seek medical attention if fever, shortness of breath, difficulty breathing, difficulty swallowing occur. SIQ for 48 hours and will call with results. PVUA ACTIVE DUTY REVIEW: - WWQ: Y - Fit for Duty: Y - Meets Medical Standards Directory (MSD) or other branch equivalent: Y - Fitness assessment exemption (469)/other branch equivalent was needed/granted: N/N Ordered: ibuprofen(ibuprofen 600 mg oral tablet), 1 tab(s), Oral, every 6 hr, # 40 tab(s), 0 total refill(s), Acute, 01/24/2023, 1 tab(s) Oral every 6 hr, Pharmacy: [facility] [Not filled] pseudoephedrine(Sudafed 30 mg oral tablet), 2 tab(s), Oral, every 6 hr, # 30 tab(s), 0 total refill(s), Acute, 01/24/2023, 2 tab(s) Oral every 6 hr, Pharmacy: [facility] [Not filled] benzonatate(Tessalon Perles 100 mg oral capsule), 1 cap(s), Oral, TID, PRN cough, X 10 days, # 30 cap(s), 0 total refill(s), Acute, 01/03/2023, 1 cap(s) Oral TID,x10 days,PRN:cough, Pharmacy: [facility] [Not filled] SC2/FLU A/FLU B ANTIGEN 2. Body mass index [BMI] 40.0-44.9, adult Ordered: ibuprofen(ibuprofen 600 mg oral tablet), 1 tab(s), Oral, every 6 hr, # 40 tab(s), 0 total refill(s), Acute, 01/24/2023, 1 tab(s) Oral every 6 hr, Pharmacy: [facility] [Not filled] pseudoephedrine(Sudafed 30 mg oral tablet), 2 tab(s), Oral, every 6 hr, # 30 tab(s), 0 total refill(s), Acute, 01/24/2023, 2 tab(s) Oral every 6 hr, Pharmacy: [facility] [Not filled] benzonatate(Tessalon Perles 100 mg oral capsule), 1 cap(s), Oral, TID, PRN cough, X 10 days, # 30 cap(s), 0 total refill(s), Acute, 01/03/2023, 1 cap(s) Oral TID,x10 days,PRN:cough, Pharmacy: [facility] [Not filled] Extracted from:Title: L shoulder pain Author: CANDIS LANE MD Date: 11/06/22 1. Pain of left shoulder joint Patient is a 27 yo AD member here for left shoulder pain for the last year. Physical exam and history are consistent with labral and long head of bicep tendon injury. Advised to use tylenol and ibuprofen, ice and heat for pain control. Given stretches, exercises, and massages to help as well. Referring to PT today. Follow up if symptoms persist or worsen. Ordered: Referral Request 2.0 2. BMI 30+ - obesity Discussed maintaining or losing weight based on BMI with lifestyle, diet and exercise changes. All patient's questions were answered, patient understands and agrees with the plan. I have reviewed and agree with nurse/tech documentation. ASIMS reviewed. Offered patient after visit summary, patient declined. WWQ: Y Fit for Duty: Y Meets Medical Standards Directory (MSD) or other branch equivalent: Y Fitness assessment exemption (469) or other branch equivalent: Yes, no upper body workouts for 30 days. Extracted from:Title: Group FF Brief Author: JUAN ROTH NP Date: 08/07/22 1. 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 per the [facility] TIG 1582-18 for [facility] 1582, attachment 3: Health History completed Respirator Questionnaire completed Vital Signs completed Visual Acuity and Horizontal Field of Vision completed Physical Exam completed Spirometry completed Audiogram completed Chest X-Ray completed EKG completed Lab studies: CBC, CMP, UA ordered today Immunizations: Tetanus, Hepatitis B, Hepatitis A up to date The patient participated in a 60 minuted group briefing to include education on hearing protections, heat/hydration, proper use of sunscreen, nutrition, exercise, and supplement use. The member completed a respiratory fitness questionnaire and upon my review the member is: CLEARED For SCBA fit testing and wear during their training. _ Ordered: CBC w/ Diff Comprehensive Metabolic Panel Urinalysis with Culture if Indicated Future Scheduled TestsLaboratoryHIV-1/2 AG/AB 4G CDD 12/23/24Pathologist Smear Review 07/06/25 10/11/[address] [place] [address] Assessment and Plan Extracted from:Title : FM- V- Lab review Author: LUCINDA ARRIOLA NP, Primary Care, Women's Health Date: 08/11/25 1. Elevated blood pressure reading without diagnosis of hypertension He has been checking his BP at home but has not had a chance to drop this off as of yet. he will drop off tomorrow before going to work so that I can review. 2. Alpha thalassemia trait Discussed with patient. No symptoms normal iron panel *Signed by: Lucinda Arriola [facility], [place], N Family Nurse Practitioner, DNP [place], [place] Family Medicine Department Extracted from:Title: FM- BP f/u, lab review Author: LUCINDA ARRIOLA NP Date: 07/06/25 1. Elevated blood pressure reading without diagnosis of hypertension Seen for PHA 6 weeks ago and told to f/u with PCM to review labs and BP readings. Has not been able to monitor BP at home Reviewed labs today EKG today to establish baseline Will send BP readings on portal in 2-3 weeks and I will review, he still needs to buy a BP cuff. 2. Abnormal blood test low mcv, mch, mchc, nl hgb ad hct Will add on additional labs Pt reports h/o G6PD, diagnosed in [facility] Ordered: Alpha-Thalassemia Analysis [id number] Hemoglobin Electrophoresis Iron Group Pathologist Smear Review Vitamin B12 and Folate Panel 3. Vitamin D deficiency Low vitamin D on recent lab. Explained that vitamin D promotes bone resorption and intestinal absorption of calcium and phosphorous, thereby promoting bone mineralization. Vitamin D is synthesized under the skin with the help of sunlight. Additionally, vitamin D can be ingested from fish or plant sources. Low Vitamin D can cause feelings of fatigue and other vague symptoms. Normal is >30ng/mL (50nmol/L). Vitamin D deficiency is <12ng/mL (30nmol/L). - Current Vitamin D level=24 20-30ng/mL - Recommend daily D3 2000 IU PO daily, recheck in 1 year. Orders: cholecalciferol(Vitamin D3 25 mcg (1000 intl units) oral tablet), 2 tab(s), Oral, Daily, # 180 tab(s), 3 total refill(s), Maintenance, Pharmacy: [facility] [Not filled] * Received verbal verification from patient that they are active in the [facility] Patient Portal. Explained that myself or the staff will be reaching out to them on the portal with any and all diagnostic testing that is ordered today, and that this will be a great way to communicate with our clinic about any other needs. All questions answered and patient expresses willingness to be an active participant in their health through the portal. *Signed by: Lcuinda Arriola [facility], [place], N Family Nurse Practitioner, DNP [place], [place] Family Medicine Department Extracted from:Title: FM- MHA/PHA + re-enlistment paperwork Author: LUCINDA ARRIOLA NP Date: 05/16/25 1. Caregiver health check completed The patient s current medications and allergies were reviewed, reconciled, and discussed between the provider and patient. No learning disability, hearing, vision, or other language/communication problems noted. Assessment was discussed with patient, and treatment plan proposed to address patient's stated therapeutic goals. Discussed healthy habits to include 2-3 servings of fruits and vegetables each daily, healthy exercise, limiting alcohol use, avoiding tobacco products, and safe sex practices. Discussed stress reduction as needed, good sleep habits, and immunization maintenance. DENTAL CATEGORY _2__. SM taught the behavior health resources available. SM verbalized understanding of instruction. PHA completed [employer] SECNAVINST 6191.3. Vaccination status has been reviewed and member is up to date or has a plan for remediation established. Dental readiness reviewed as above with any discrepancies to be managed per local dental clinic. No duty limiting conditions identified. Any acute issues are identified above and follow-up appointments with the PCM will be made or are already being addressed. 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 2. Elevated blood pressure reading without diagnosis of hypertension Elevated blood pressure reading as noted per ACC/AHA guidelines, without the diagnosis of HTN today. Elevated BP= SBP 120-129 AND DBP >80 - Lifestyle modifications are first line to lowering BP. Discussed the importance of weight loss and the direct impact it has on lowering BP. Lowering weight by about 1kg can translate into approximately 1mmHG lowering of BP. Recommended avoidance of high sugary/processed foods/trans fats. Should increase fiber/lean protein in diet. Eliminate sugary drinks. Stressed the importance of exercise in losing weight. A good exercise regimen will include 90-150minutes of aerobic exercise/week, 90-150minutes of dynamic resistance training/week, and three sessions/week of isometric resistance exercise. Need to exercise with enough intensity to elevate heart rate to at least 65-80%, in order to gain the most benefits. - Offered nutritional referral, pt would like to pursue. - Patient to record home BP readings every day x 2 weeks. Recommend validating monitor in clinic. Do not use wrist BP monitor - Labs fasting today - F/U in clinic in 1 month to discuss further management based on BP readings. - Patient verbalized understanding and is in agreement with plan Ordered: Basic Metabolic Panel Hemoglobin A1c Hemogram Hepatic Function Panel Lipid Panel Microalbumin Panel, Urine Thyroid Stimulating Hormone Vitamin D 25 Hydroxy Level 3. Sleep problem Sleep referral entered. Ordered: Referral Request 2.0 - [employer] 4. Administrative statuses Record review complete. 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 Reviewed all positive answers on 2806, none are disqualifying or duty limiting. Suitable for re-enlistment . 2806- and NPPS 1160/1 signed and placed in OUT box for MILRED team to finish processing. *Signed by: LCDR Lucinda Arriola, DOMENICA Family Medicine Provider [place], [place] Extracted from:Title: Audio Note Author: SAMSON EPSTEIN Date: 03/16/25 Chief Complaint Annual audiogram History of Present Illness Annual monitoring/ medical surveillance audiogram due to hearing conservation enrollment Physical Exam See [id number] Audiogram Tests Audiometric results reviewed with patient. Assessment/ Plan. No STS found. Member qualified on SECNAB2Brev 5100 FORM and form signed Hearing Health Education: 1:1 instruction to Pt on noise hazards, noise effects on the ear, and correct usage of HPDs. Provided instruction on how properly insert handrolled foam earplug HPD and check for seal today. Pt was able to demonstrate good HPD insertion technique and depth after reinstruction. 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 Pt. is advised to wear HPD whenever exposed to hazardous noise and proper wear of double HPD in extreme noise was covered in today s training. The patient s questions were answered, and guidance provided for future appointments. Return to clinic annually for audiogram. HM2([facility]) SAMSON EPSTEIN [facility] AUDIO TECH Extracted from:Title: AUDIO NOTE Author: LAVON LOZA Date: 03/29/24 Diagnosis: 1. Encounter for hearing conservation and treatment Comment: Ordered: Patient Education NOC Non-Phys Provider,Group/Session [id number]; 03/29/2024 09:22:00 PDT by DIMPLE VALDEZ [employer] Pure Tone Audiometry Automated Air Only [id number]; 03/29/2024 09:22:00 PDT End of Orders Chief Complaint Annual audiogram History of Present Illness Annual monitoring/ medical surveillance audiogram due to hearing conservation enrollment Physical Exam See [id number] Audiogram Tests Audiometric results reviewed with patient. Assessment/ Plan. No STS found. Member qualified on SECNAB2Brev 5100 FORM and form signed Hearing Health Education: 1:1 instruction to Pt on noise hazards, noise effects on the ear, and correct usage of HPDs. Provided instruction on how properly insert handrolled foam earplug HPD and check for seal today. Pt was able to demonstrate good HPD insertion technique and depth after reinstruction. 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 Pt. is advised to wear HPD whenever exposed to hazardous noise and proper wear of double HPD in extreme noise was covered in today s training. The patient s questions were answered, and guidance provided for future appointments. Return to clinic annually for audiogram. Lavon Loza Occupational Health Inspector [employer] [place], [place] Extracted from:Title: PHA Clinic Note Author: AYUSH POTTER NP Date: 03/11/24 1. Encounter for issue of other medical certificate Reviewed documentation of height and weight, current medical conditions and deployment related health problems, to include screening for traumatic brain injury exposure, allergies, medications, required immunizations, medical readiness laboratory tests, audiology, and optometry examinations. Completed screenings and provided patient education as appropriate. Assessed and reviewed responses to AUDIT= 3, PCL-C= 0, PHQ-8=0 (no elevated risk) screening tools, at this time no tasking or consults needed. Vine Pruner is aware of services available (911, One source, [employer] Sales Representative [employer], Walk in , Walk in ER, Notify chain of command, etc) and how to contact them if needed. Vine Pruner denies suicidal and homicidal ideation. Preventative services reviewed and discussed per age, race, and gender. Reviewed immunization history and assessed immunization status. Reviewed physical activity including aerobic and isometric exercises. Reviewed risk sexual risk factors and previous STD testing date, including HIV, and assessed as not at significant risk for acquiring STDs including HIV infection. Reviewed readiness labs and examinations needed including recommendation for lipid screening every 5 years beginning at age 35. Compared medications reported by Vine Pruner to active medication list in [facility] and any variances were documented. Any complaints or issues identified while conducting the PHA have been addressed and or referred back to the Vine Pruner's PCM for care. Vine Pruner advised to follow up with PCM, Behavioral Health, ED/911, or One Source as needed for continuation of care, and/or further evaluation during exacerbations of physical and/or psychological illness or injury. See PHA document for additional information. Twenty minutes of total time spent reviewing records, discussing health concerns and preventative health measures with Vine Pruner. Extracted from:Title: IMMS NOTE Author: RK MCFADDEN Date: 08/13/23 Vaccination given FLU IMMUNIZATION SCREENING QUESTIONNAIRE Verified right patient, right vaccine/diluent, right time, right dosage, right route, right site, and right documentation. 1) Are you currently sick, feel ill, or have a fever over 100 degrees? (NO) 2) Have you had a serious reaction, other than Flu-like symptoms, following an influenza vaccine in the past? (NO) 3) Have you ever experienced numbness or weakness of your legs or elsewhere (Guillain- Alcantara syndrome) within 6 weeks of receiving an influenza vaccine? (NO) 4) Have you ever had, or been treated for, a severe allergic reaction (flushing, hives, wheezing, and/or low blood pressure) to any vaccine, or do you have a severe allergy to any of the following: eggs, chicken, gelatin, MSG,Gentamicin, Neomycin, Polymyxin-B, thimerosal, formaldehyde, latex, or other vaccine component? (NO) 5) If your child is between 6 months and 8 years of age, has your child received at least two (2) previous NOT doses of influenza vaccine? (N/A) 6) Have you received an influenza vaccine within the past 30 days? (NO) 7) Are you, or might you be, ? ( NO) Patient has verbalized the answer to this questionnaire. Patient in clinic for immunizations. Vaccine information reviewed with patient and current VIS was given. Medications were reviewed and allergies verified. Patient/caregiver gives verbal consent for immunizations at bedside. Patient given: Vaccine Name: Influenza Quadrivalent (Afluria IIV4 PF 3YO+) Dosage: 0.5 ml LOT #: [id number] Expiration Date: 04/18/2024 Location: LEFT DELTOID Route: Intramuscular VIS: 05/25/2021 No ASE to vaccine noted prior to patient leaving clinic. Patient advised to wait 15 minutes in waiting room to monitor for adverse reactions. Rk [facility] Immunizations Department Extracted from:Title: FM - Left shoulder pain, PRT waiver Author: TANO NEWBY Date: 04/16/23 1. 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 He was in physical therapy which was helping however he transferred from [facility] without completing his therapy. He continues to have difficulty with push-ups and planks due to his left shoulder pain. Discussed in length regarding implications of PRT waiver, continued LLD, or potential LIMDU status. Patient verbalized understanding. - Member is waived from participating in all three events of PRT pending PT and shoulder recovery. 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 2. Left shoulder pain On physical exam he has pain on left anterior shoulder and left AC joint region. He had pain with raising his arm up, abduction, and adduction. From his exam it is suggestive of left shoulder tendinitis however we will keep rotator cuff injury on differential. Will continue with physical therapy for now and pain management with OTC NSAIDs and topicals. Provided PRT waiver for the patient. Currently patient is on 60 days of LLD, no further LLD provided today. If patient continues to have pain requiring another LLD, discussed that if he reaches 90 days of LLD then he will be placed on LIMDU for further evaluation. - Follow-up as needed, sooner if symptoms worsen or new symptoms develop Disclaimer: I am using voice recognition software to dictate my encounter. As such, there may be typographical or grammatical errors that are missed in proofreading the document. Total time spent with patient 20 minutes. Total time reviewing charts and completing notes 20 minutes. Signed by: Tano Newby PA-C LT, [facility] Extracted from:Title: FM-l shoulder pain Author: VINNY MOONEY PA Date: 04/08/23 Orders: diclofenac topical(Voltaren 1% topical gel), See instructions, Apply 2 grams (upper extremities) or 4 grams (lower extremities) to affected area topically four times daily as needed for pain. Max total body dose of 32 grams per day, # 100 g, 0 total refill(s), Maintenance, Apply 2 grams (upper e... Referral Request 2.0 I spent a total of 30 minutes reviewing chart notes, evaluating and treating this patient, as well as documenting this encounter. A portion of this encounter was documented using voice recognition software. Some word misplacements or errors may be present in the final note. Signed by: Vinny Mooney PA-C Physician Vitreo Retinal Surgeon [facility] Extracted from:Title: Cold sxs Author: GABRIELA CASTELLANO PA-C Date: 12/24/22 1. 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 History and physical exam consistent with upper respiratory infection. No sinus tenderness, uvular deviation, or other concerning symptoms. Most likely viral, and will resolve over the next couple of days. Encouraged hydration, good hand hygiene. Patient will RTC if symptoms persist for reevaluation of symptoms at that time, will consider alternative treatment. Patient to seek medical attention if fever, shortness of breath, difficulty breathing, difficulty swallowing occur. SIQ for 48 hours and will call with results. PVUA ACTIVE DUTY REVIEW: - WWQ: Y - Fit for Duty: Y - Meets Medical Standards Directory (MSD) or other branch equivalent: Y - Fitness assessment exemption (469)/other branch equivalent was needed/granted: N/N Ordered: ibuprofen(ibuprofen 600 mg oral tablet), 1 tab(s), Oral, every 6 hr, # 40 tab(s), 0 total refill(s), Acute, 01/24/2023, 1 tab(s) Oral every 6 hr, Pharmacy: [facility] [Not filled] pseudoephedrine(Sudafed 30 mg oral tablet), 2 tab(s), Oral, every 6 hr, # 30 tab(s), 0 total refill(s), Acute, 01/24/2023, 2 tab(s) Oral every 6 hr, Pharmacy: [facility] [Not filled] benzonatate(Tessalon Perles 100 mg oral capsule), 1 cap(s), Oral, TID, PRN cough, X 10 days, # 30 cap(s), 0 total refill(s), Acute, 01/03/2023, 1 cap(s) Oral TID,x10 days,PRN:cough, Pharmacy: [facility] [Not filled] SC2/FLU A/FLU B ANTIGEN 2. Body mass index [BMI] 40.0-44.9, adult Ordered: ibuprofen(ibuprofen 600 mg oral tablet), 1 tab(s), Oral, every 6 hr, # 40 tab(s), 0 total refill(s), Acute, 01/24/2023, 1 tab(s) Oral every 6 hr, Pharmacy: [facility] [Not filled] pseudoephedrine(Sudafed 30 mg oral tablet), 2 tab(s), Oral, every 6 hr, # 30 tab(s), 0 total refill(s), Acute, 01/24/2023, 2 tab(s) Oral every 6 hr, Pharmacy: [facility] [Not filled] benzonatate(Tessalon Perles 100 mg oral capsule), 1 cap(s), Oral, TID, PRN cough, X 10 days, # 30 cap(s), 0 total refill(s), Acute, 01/03/2023, 1 cap(s) Oral TID,x10 days,PRN:cough, Pharmacy: [facility] [Not filled] Extracted from:Title: L shoulder pain Author: CANDIS LANE MD Date: 11/06/22 1. Pain of left shoulder joint Patient is a 27 yo AD member here for left shoulder pain for the last year. Physical exam and history are consistent with labral and long head of bicep tendon injury. Advised to use tylenol and ibuprofen, ice and heat for pain control. Given stretches, exercises, and massages to help as well. Referring to PT today. Follow up if symptoms persist or worsen. Ordered: Referral Request 2.0 2. BMI 30+ - obesity Discussed maintaining or losing weight based on BMI with lifestyle, diet and exercise changes. All patient's questions were answered, patient understands and agrees with the plan. I have reviewed and agree with nurse/tech documentation. ASIMS reviewed. Offered patient after visit summary, patient declined. WWQ: Y Fit for Duty: Y Meets Medical Standards Directory (MSD) or other branch equivalent: Y Fitness assessment exemption (469) or other branch equivalent: Yes, no upper body workouts for 30 days. Extracted from:Title: Group FF Brief Author: JUAN ROTH NP Date: 08/07/22 1. 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 The member completed a respiratory fitness questionnaire and upon my review the member is: CLEARED For SCBA fit testing and wear during their training. _ Ordered: CBC w/ Diff Comprehensive Metabolic Panel Urinalysis with Culture if Indicated Future Scheduled TestsLaboratoryHIV-1/2 AG/AB 4G CDD 12/23/24Pathologist Smear Review 07/06/25 10/11/2025 [id number] [facility] Assessment and Plan Extracted from:Title : - V- Lab review Author: LUCINDA ARRIOLA NP, Primary Care, Women's Health Date: 08/11/25 1. Elevated blood pressure reading without diagnosis of hypertension He has been checking his BP at home but has not had a chance to drop this off as of yet. he will drop off tomorrow before going to work so that I can review. 2. Alpha thalassemia trait Discussed with patient. No symptoms normal iron panel *Signed by: Lucinda Arriola [facility], [place], N Family Nurse Practitioner, DNP [place], [place] Family Medicine Department Extracted from:Title: - BP f/u, lab review Author: LUCINDA ARRIOLA NP Date: 07/06/25 1. Elevated blood pressure reading without diagnosis of hypertension Seen for PHA 6 weeks ago and told to f/u with PCM to review labs and BP readings. Has not been able to monitor BP at home Reviewed labs today EKG today to establish baseline Will send BP readings on portal in 2-3 weeks and I will review, he still needs to buy a BP cuff. 2. Abnormal blood test low mcv, mch, mchc, nl hgb ad hct Will add on additional labs Pt reports h/o G6PD, diagnosed in [facility] Ordered: Alpha-Thalassemia Analysis [id number] Hemoglobin Electrophoresis Iron Group Pathologist Smear Review Vitamin B12 and Folate Panel 3. Vitamin D deficiency Low vitamin D on recent lab. Explained that vitamin D promotes bone resorption and intestinal absorption of calcium and phosphorous, thereby promoting bone mineralization. Vitamin D is synthesized under the skin with the help of sunlight. Additionally, vitamin D can be ingested from fish or plant sources. Low Vitamin D can cause feelings of fatigue and other vague symptoms. Normal is >30ng/mL (50nmol/L). Vitamin D deficiency is <12ng/mL (30nmol/L). - Current Vitamin D level=24 20-30ng/mL - Recommend daily D3 2000 IU PO daily, recheck in 1 year. Orders: cholecalciferol(Vitamin D3 25 mcg (1000 intl units) oral tablet), 2 tab(s), Oral, Daily, # 180 tab(s), 3 total refill(s), Maintenance, Pharmacy: [facility] [Not filled] * Received verbal verification from patient that they are active in the [facility] Patient Portal. Explained that myself or the staff will be reaching out to them on the portal with any and all diagnostic testing that is ordered today, and that this will be a great way to communicate with our clinic about any other needs. All questions answered and patient expresses willingness to be an active participant in their health through the portal. *Signed by: Lucinda Arriola [place], [place], N Family Nurse Practitioner, DNP [place], [place] Family Medicine Department Extracted from:Title: FM- MHA/PHA + re-enlistment paperwork Author: LUCINDA ARRIOLA NP Date: 05/16/25 1. Caregiver health check completed The patient s current medications and allergies were reviewed, reconciled, and discussed between the provider and patient. No learning disability, hearing, vision, or other language/communication problems noted. Assessment was discussed with patient, and treatment plan proposed to address patient's stated therapeutic goals. Discussed healthy habits to include 2-3 servings of fruits and vegetables each daily, healthy exercise, limiting alcohol use, avoiding tobacco products, and safe sex practices. Discussed stress reduction as needed, good sleep habits, and immunization maintenance. DENTAL CATEGORY _2__. SM taught the behavior health resources available. SM verbalized understanding of instruction. PHA completed IAW DAVEVINST 6103.3. Vaccination status has been reviewed and member is up to date or has a plan for remediation established. Dental readiness reviewed as above with any discrepancies to be managed per local dental clinic. No duty limiting conditions identified. Any acute issues are identified above and follow-up appointments with the PCM will be made or are already being addressed. 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 2. Elevated blood pressure reading without diagnosis of hypertension Elevated blood pressure reading as noted per ACC/AHA guidelines, without the diagnosis of HTN today. Elevated BP= SBP 120-129 AND DBP >80 - Lifestyle modifications are first line to lowering BP. Discussed the importance of weight loss and the direct impact it has on lowering BP. Lowering weight by about 1kg can translate into approximately 1mmHG lowering of BP. Recommended avoidance of high sugary/processed foods/trans fats. Should increase fiber/lean protein in diet. Eliminate sugary drinks. Stressed the importance of exercise in losing weight. A good exercise regimen will include 90-150minutes of aerobic exercise/week, 90-150minutes of dynamic resistance training/week, and three sessions/week of isometric resistance exercise. Need to exercise with enough intensity to elevate heart rate to at least 65-80%, in order to gain the most benefits. - Offered nutritional referral, pt would like to pursue. - Patient to record home BP readings every day x 2 weeks. Recommend validating monitor in clinic. Do not use wrist BP monitor - Labs fasting today - F/U in clinic in 1 month to discuss further management based on BP readings. - Patient verbalized understanding and is in agreement with plan Ordered: Basic Metabolic Panel Hemoglobin A1c Hemogram Hepatic Function Panel Lipid Panel Microalbumin Panel, Urine Thyroid Stimulating Hormone Vitamin D 25 Hydroxy Level 3. Sleep problem Sleep referral entered. Ordered: Referral Request 2.0 - [employer] 4. Administrative statuses Record review complete. 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 Reviewed all positive answers on 2806, none are disqualifying or duty limiting. Suitable for re-enlistment . 2807-1 and NPPS 1160/1 signed and placed in OUT box for MILRED team to finish processing. *Signed by: LCDR Lucinda Arriola, DOMENICA Family Medicine Provider [place], [place] Extracted from:Title: Audio Note Author: SAMSON EPSTEIN Date: 03/16/25 Chief Complaint Annual audiogram History of Present Illness Annual monitoring/ medical surveillance audiogram due to hearing conservation enrollment Physical Exam See [id number] Audiogram Tests Audiometric results reviewed with patient. Assessment/ Plan. No STS found. Member qualified on [id number] 5100 FORM and form signed Hearing Health Education: 1:1 instruction to Pt on noise hazards, noise effects on the ear, and correct usage of HPDs. Provided instruction on how properly insert handrolled foam earplug HPD and check for seal today. Pt was able to demonstrate good HPD insertion technique and depth after reinstruction. 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 Pt. is advised to wear HPD whenever exposed to hazardous noise and proper wear of double HPD in extreme noise was covered in today s training. The patient s questions were answered, and guidance provided for future appointments. Return to clinic annually for audiogram. HM2([facility]) SAMSON EPSTEIN [facility] AUDIO TECH Extracted from:Title: AUDIO NOTE Author: LAVON LOZA Date: 03/29/24 Diagnosis: 1. Encounter for hearing conservation and treatment Comment: Ordered: Patient Education NOC Non-Phys Provider,Group/Session [id number]; 03/29/2024 09:22:00 PDT by DIMPLE VALDEZ [employer] Pure Tone Audiometry Automated Air Only [id number]; 03/29/2024 09:22:00 PDT End of Orders Chief Complaint Annual audiogram History of Present Illness Annual monitoring/ medical surveillance audiogram due to hearing conservation enrollment Physical Exam See [id number] Audiogram Tests Audiometric results reviewed with patient. Assessment/ Plan. No STS found. Member qualified on ClarabridgeNAB2Brev 5100 FORM and form signed Hearing Health Education: 1:1 instruction to Pt on noise hazards, noise effects on the ear, and correct usage of HPDs. Provided instruction on how properly insert handrolled foam earplug HPD and check for seal today. Pt was able to demonstrate good HPD insertion technique and depth after reinstruction. 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 Pt. is advised to wear HPD whenever exposed to hazardous noise and proper wear of double HPD in extreme noise was covered in today s training. The patient s questions were answered, and guidance provided for future appointments. Return to clinic annually for audiogram. Lavon Loza Occupational Health Inspector [employer] [place], [place] Extracted from:Title: PHA Clinic Note Author: AYUSH POTTER NP Date: 03/11/24 1. Encounter for issue of other medical certificate Reviewed documentation of height and weight, current medical conditions and deployment related health problems, to include screening for traumatic brain injury exposure, allergies, medications, required immunizations, medical readiness laboratory tests, audiology, and optometry examinations. Completed screenings and provided patient education as appropriate. Assessed and reviewed responses to AUDIT= 3, PCL-C= 0, PHQ-8=0 (no elevated risk) screening tools, at this time no tasking or consults needed. Vine Pruner is aware of services available (911, One source, [employer] Sales Representative [employer], Walk in , Walk in ER, Notify chain of command, etc) and how to contact them if needed. Vine Pruner denies suicidal and homicidal ideation. Preventative services reviewed and discussed per age, race, and gender. Reviewed immunization history and assessed immunization status. Reviewed physical activity including aerobic and isometric exercises. Reviewed risk sexual risk factors and previous STD testing date, including HIV, and assessed as not at significant risk for acquiring STDs including HIV infection. Reviewed readiness labs and examinations needed including recommendation for lipid screening every 5 years beginning at age 35. Compared medications reported by Vine Pruner to active medication list in [facility] and any variances were documented. Any complaints or issues identified while conducting the PHA have been addressed and or referred back to the Vine Pruner's PCM for care. Vine Pruner advised to follow up with PCM, Behavioral Health, ED/911, or One Source as needed for continuation of care, and/or further evaluation during exacerbations of physical and/or psychological illness or injury. See PHA document for additional information. Twenty minutes of total time spent reviewing records, discussing health concerns and preventative health measures with Vine Pruner. Extracted from:Title: IMMS NOTE Author: RK MCFADDEN Date: 08/13/23 Vaccination given FLU IMMUNIZATION SCREENING QUESTIONNAIRE Verified right patient, right vaccine/diluent, right time, right dosage, right route, right site, and right documentation. 1) Are you currently sick, feel ill, or have a fever over 100 degrees? (NO) 2) Have you had a serious reaction, other than Flu-like symptoms, following an influenza vaccine in the past? (NO) 3) Have you ever experienced numbness or weakness of your legs or elsewhere (Guillain- Alcantara syndrome) within 6 weeks of receiving an influenza vaccine? (NO) 4) Have you ever had, or been treated for, a severe allergic reaction (flushing, hives, wheezing, and/or low blood pressure) to any vaccine, or do you have a severe allergy to any of the following: eggs, chicken, gelatin, MSG,Gentamicin, Neomycin, Polymyxin-B, thimerosal, formaldehyde, latex, or other vaccine component? (NO) 5) If your child is between 6 months and 8 years of age, has your child received at least two (2) previous NOT doses of influenza vaccine? (N/A) 6) Have you received an influenza vaccine within the past 30 days? (NO) 7) Are you, or might you be, ? ( NO) Patient has verbalized the answer to this questionnaire. Patient in clinic for immunizations. Vaccine information reviewed with patient and current VIS was given. Medications were reviewed and allergies verified. Patient/caregiver gives verbal consent for immunizations at bedside. Patient given: Vaccine Name: Influenza Quadrivalent (Afluria IIV4 PF 3YO+) Dosage: 0.5 ml LOT #: [id number] Expiration Date: 04/18/2024 Location: LEFT DELTOID Route: Intramuscular VIS: 05/25/2021 No ASE to vaccine noted prior to patient leaving clinic. Patient advised to wait 15 minutes in waiting room to monitor for adverse reactions. Rk [facility] Immunizations Department Extracted from:Title: FM - Left shoulder pain, PRT waiver Author: TANO NEWBY Date: 04/16/23 1. 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 He was in physical therapy which was helping however he transferred from [facility] without completing his therapy. He continues to have difficulty with push-ups and planks due to his left shoulder pain. Discussed in length regarding implications of PRT waiver, continued LLD, or potential LIMDU status. Patient verbalized understanding. - Member is waived from participating in all three events of PRT pending PT and shoulder recovery. 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 2. Left shoulder pain On physical exam he has pain on left anterior shoulder and left AC joint region. He had pain with raising his arm up, abduction, and adduction. From his exam it is suggestive of left shoulder tendinitis however we will keep rotator cuff injury on differential. Will continue with physical therapy for now and pain management with OTC NSAIDs and topicals. Provided PRT waiver for the patient. Currently patient is on 60 days of LLD, no further LLD provided today. If patient continues to have pain requiring another LLD, discussed that if he reaches 90 days of LLD then he will be placed on LIMDU for further evaluation. - Follow-up as needed, sooner if symptoms worsen or new symptoms develop Disclaimer: I am using voice recognition software to dictate my encounter. As such, there may be typographical or grammatical errors that are missed in proofreading the document. Total time spent with patient 20 minutes. Total time reviewing charts and completing notes 20 minutes. Signed by: Tano Newby PA-C LT, [facility] Extracted from:Title: FM-l shoulder pain Author: VINNY MOONEY PA Date: 04/08/23 Orders: diclofenac topical(Voltaren 1% topical gel), See instructions, Apply 2 grams (upper extremities) or 4 grams (lower extremities) to affected area topically four times daily as needed for pain. Max total body dose of 32 grams per day, # 100 g, 0 total refill(s), Maintenance, Apply 2 grams (upper e... Referral Request 2.0 I spent a total of 30 minutes reviewing chart notes, evaluating and treating this patient, as well as documenting this encounter. A portion of this encounter was documented using voice recognition software. Some word misplacements or errors may be present in the final note. Signed by: Vinny Mooney PA-C Physician Vitreo Retinal Surgeon [facility] Extracted from:Title: Cold sxs Author: GABRIELA CASTELLANO PA-C Date: 12/24/22 1. 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 History and physical exam consistent with upper respiratory infection. No sinus tenderness, uvular deviation, or other concerning symptoms. Most likely viral, and will resolve over the next couple of days. Encouraged hydration, good hand hygiene. Patient will RTC if symptoms persist for reevaluation of symptoms at that time, will consider alternative treatment. Patient to seek medical attention if fever, shortness of breath, difficulty breathing, difficulty swallowing occur. SIQ for 48 hours and will call with results. PVUA ACTIVE DUTY REVIEW: - WWQ: Y - Fit for Duty: Y - Meets Medical Standards Directory (MSD) or other branch equivalent: Y - Fitness assessment exemption (469)/other branch equivalent was needed/granted: N/N Ordered: ibuprofen(ibuprofen 600 mg oral tablet), 1 tab(s), Oral, every 6 hr, # 40 tab(s), 0 total refill(s), Acute, 01/24/2023, 1 tab(s) Oral every 6 hr, Pharmacy: [facility] [Not filled] pseudoephedrine(Sudafed 30 mg oral tablet), 2 tab(s), Oral, every 6 hr, # 30 tab(s), 0 total refill(s), Acute, 01/24/2023, 2 tab(s) Oral every 6 hr, Pharmacy: [facility] [Not filled] benzonatate(Tessalon Perles 100 mg oral capsule), 1 cap(s), Oral, TID, PRN cough, X 10 days, # 30 cap(s), 0 total refill(s), Acute, 01/03/2023, 1 cap(s) Oral TID,x10 days,PRN:cough, Pharmacy: [facility] [Not filled] SC2/FLU A/FLU B ANTIGEN 2. Body mass index [BMI] 40.0-44.9, adult Ordered: ibuprofen(ibuprofen 600 mg oral tablet), 1 tab(s), Oral, every 6 hr, # 40 tab(s), 0 total refill(s), Acute, 01/24/2023, 1 tab(s) Oral every 6 hr, Pharmacy: [facility] [Not filled] pseudoephedrine(Sudafed 30 mg oral tablet), 2 tab(s), Oral, every 6 hr, # 30 tab(s), 0 total refill(s), Acute, 01/24/2023, 2 tab(s) Oral every 6 hr, Pharmacy: [facility] [Not filled] benzonatate(Tessalon Perles 100 mg oral capsule), 1 cap(s), Oral, TID, PRN cough, X 10 days, # 30 cap(s), 0 total refill(s), Acute, 01/03/2023, 1 cap(s) Oral TID,x10 days,PRN:cough, Pharmacy: [facility] [Not filled] Extracted from:Title: L shoulder pain Author: CANDIS LANE MD Date: 11/06/22 1. Pain of left shoulder joint Patient is a 27 yo AD member here for left shoulder pain for the last year. Physical exam and history are consistent with labral and long head of bicep tendon injury. Advised to use tylenol and ibuprofen, ice and heat for pain control. Given stretches, exercises, and massages to help as well. Referring to PT today. Follow up if symptoms persist or worsen. Ordered: Referral Request 2.0 2. BMI 30+ - obesity Discussed maintaining or losing weight based on BMI with lifestyle, diet and exercise changes. All patient's questions were answered, patient understands and agrees with the plan. I have reviewed and agree with nurse/tech documentation. ASIMS reviewed. Offered patient after visit summary, patient declined. WWQ: Y Fit for Duty: Y Meets Medical Standards Directory (MSD) or other branch equivalent: Y Fitness assessment exemption (469) or other branch equivalent: Yes, no upper body workouts for 30 days. Extracted from:Title: Group FF Brief Author: JUAN ROTH NP Date: 08/07/22 1. 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 The member completed a respiratory fitness questionnaire and upon my review the member is: CLEARED For SCBA fit testing and wear during their training. _ Ordered: CBC w/ Diff Comprehensive Metabolic Panel Urinalysis with Culture if Indicated Future Scheduled TestsLaboratoryHIV-1/2 AG/AB 4G CDD 12/23/24Pathologist Smear Review 07/06/25 10/11/2025 Unknown Organization Functional Status Combined list of recent functional and cognitive assessments recorded at [facility] Functional [place] Measurement (FIM) Scale: 1 = Total Assistance (Subject = 0% +), 2 = Maximal Assistance (Subject = 25% +), 3 = Moderate Assistance (Subject = 50% +), 4 = Minimal Assistance (Subject = 75% +), 5 = Supervision, 6 = Modified [place] (Device), 7 = Complete [place] (Timely, Safely). Assessment Date/Time Source Assessment Type Assessment Skill Assessment Score Assessment Details No data available for this section
[2025-10-11 03:52] VITALS: BP 171/114; PULSE 70; RESP 18; TEMP 36.4; O2SAT 98; BMI 39.7
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
[2025-10-11] MEDS: KETOROLAC 30 MG/ML VIAL IM (04:00)
[2025-10-11 04:58] VITALS: BP 157/107; PULSE 68; RESP 18; O2SAT 100
== END 2025-10-11 04:59 | disposition home or self-care (01) ==
PROVIDERS: Emergency Provider Family Medicine
DX: N50.811 Right testicular pain (principal); R10.30 Lower abdominal pain, unspecified
CPT/HCPCS: 76870; 81003; 93975; 96372; 99283; 99284; J1885